=== PATIENT | male | born 1980 | race Caucasian/White ===

== ENCOUNTER 2017-03-10 20:38 | Emergency (ER) | payer BC, OTHER ==
[~2017-03-10] VITALS: Ht 185.4 cm; Wt 116.0 kg
[~2017-03-10 20:38] MED LIST: AMPH20CA3 PO; HYDR-4380 PO; OXYC-57 PO
[2017-03-10 20:40] VITALS: TEMP 36.9; Ht 185.4 cm; Wt 116.0 kg
[2017-03-10] MEDS ORDERED: IBUP-1050 PO (20:56)
[2017-03-10] MEDS ORDERED: MoRPHine SULFATE 10 MG/ML CARP/VIAL IM STA (21:35)
[2017-03-10] MEDS ORDERED: ONDANSETRON 4MG OD TAB PO ONE (21:45)
--- NOTE | 2017-03-10 22:29 | DIAGNOSTIC IMAGING REPORT ---
CT OF THE CERVICAL SPINE WITHOUT CONTRAST CLINICAL HISTORY: Severe pain from lifting at work COMPARISON STUDY: MRI of the cervical spine August 01, 2016. TECHNIQUE: Helical axial images of the cervical spine were obtained without IV contrast. Sagittal and coronal reconstructions were viewed. FINDINGS: The patient is status post C3-C4 discectomy and C5-C6 discectomy with anterior fusion. The hardware is intact. Fusion at these levels is incomplete. There is no acute fracture. Craniocervical junction is intact. Central canal and neural foramen are suboptimally assessed by CT. There is no prevertebral edema. IMPRESSION: 1. No acute cervical spine fracture or subluxation. 2. Status post C3-C4 discectomy and C5-C6 discectomy and fusion. Hardware intact. Suboptimal evaluation of central canal and neural foramen given CT technique. Electronically signed by: Leopoldo Liz M.D. 03/10/2017 10:28 PM Dictated Date/Time: 03/10/2017 10:23 PM
--- NOTE | 2017-03-10 22:35 | DIAGNOSTIC IMAGING REPORT ---
CT LUMBAR SPINE WITHOUT CLINICAL HISTORY: Severe pain from lifting at work, pain down right leg TECHNIQUE: Axial images lumbar spine were obtained without IV contrast. Sagittal and coronal reconstructions were viewed. COMPARISON STUDY: None. FINDINGS: For purposes of numbering on this exam, the L5-S1 disc space is assigned to axial image 320 of 368. There is slight anterolisthesis of L5 on S1 due to bilateral L5 pars defects. There is no acute lumbar spine fracture. Paravertebral soft tissues are unremarkable. The central canal and neural foramen are suboptimally assessed given CT technique. However, multilevel disc bulges are noted with mild multilevel facet arthrosis. There is suspected moderate central canal stenosis at L2-L3 and L3-L4. Schmorl's nodes are noted at multiple levels. IMPRESSION: 1. No acute lumbar spine fracture or subluxation. 2. Grade I anterolisthesis of L5 on S1 due to bilateral L5 pars defects. 3. Suboptimal evaluation of the central canal and neural foramen. Multilevel disc bulges with mild facet arthrosis with suspected moderate central canal stenosis at L2-L3 and to a lesser extent L3-L4. Electronically signed by: Leopoldo Liz M.D. 03/10/2017 10:34 PM Dictated Date/Time: 03/10/2017 10:28 PM
[2017-03-10] MEDS ORDERED: OXYCODONE IR HOME PACK PO ONE (23:00)
[2017-03-10] MEDS ORDERED: ONDANSETRON HOME PACK 4MG OD TAB PO ONE (23:00)
[2017-03-10] MEDS ORDERED: PRED50TA PO (23:06)
[2017-03-10 23:12] VITALS: BP 155/104; PULSE 86; O2SAT 98
[2017-03-10] MEDS ORDERED: DEXAMETHASONE SOD INJ 10 MG/ML VIAL PO ONE (23:15)
--- NOTE | 2017-03-11 03:11 | EMERGENCY ROOM VISIT NOTE ---
History First contact with patient: 21:28 Chief Complaint: NECK PAIN Stated Complaint: NECK LOW BACK PAIN History of Present Illness The patient is a 36 year old male who presents to the Emergency Room with complaints of severe neck pain and low back pain that radiates down his left leg after lifting heavy equipment at work. He states the pain started while lifting at work. He states this is work-related. He describes the pain as aching, ranging in severity 8 out of 10 worse with movement and better with rest. He's had prior neck surgery by Dr. Mejia. He states he does not like this doctor and will never see him again. He states he has a new spine doctor in [place] and He has appointment next week. Patient denies numbness, tingling , loss of bowel or bladder control, saddle anesthesia, IV drug abuse, fever, chills, chest pain, dyspnea, abdominal pain, arm pain, and arm weakness, leg weakness or any other medical complaints. Review of Systems See HPI for pertinent positives & negatives. A total of 10 systems reviewed and were otherwise negative. Past Medical/Surgical History Medical Problems: (1) ATTN DEFIC NONHYPERACT (2) Cervical spinal cord compression (3) LYME DISEASE Family History Heart disease Social History Smoking Status: Current Every Day Smoker Alcohol Use: none Drug Use: none Marital Status: Housing Status: lives with family Occupation Status: employed Current/Historical Medications Scheduled Amphetamine-Dextroamphetamine 20MG (Adderall Xr 20MG), 20 MG PO DAILY Ibuprofen (Advil), 800 MG PO DAILY Prednisone (Prednisone), 50 MG PO DAILY Allergies Coded Allergies: No Known Allergies (Unverified , NONE, 03/10/17) Physical Exam Vital Signs Date Time Temp Pulse Resp B/P (MAP) Pulse Ox O2 Delivery O2 Flow Rate FiO2 03/10/17 23:12 86 16 155/104 98 03/10/17 22:31 94 16 161/112 97 Room Air 03/10/17 20:40 36.9 115 20 193/120 98 Room Air Pain Rating (0-10): 3.0 Physical Exam VITALS: Vitals are noted on the nurse's note and reviewed by myself. Vital signs hypertensive GENERAL: Pleasant female ambulate without difficulties, in no acute distress, nondiaphoretic, well-developed well-nourished. SKIN: Capillary reflex less than 2 seconds. HEENT: Normocephalic. PERRLA. EOMI. Nares patent. Mucous membranes moist. Neck: supple without nuchal rigidity. Minimal C-spine tenderness C5 and 6. HEART: Regular rate and rhythm without murmurs gallops or rubs. LUNGS: Clear to auscultation bilaterally without wheezes, rales or rhonchi. No retractions or accessory muscle use. ABDOMEN: Positive bowel sounds x 4. Normal tympanic percussion. Soft, nontender, without masses or organomegaly. Brooks sign negative. No guarding or rebound tenderness. MUSCULOSKELETAL: No gross musculoskeletal defects. No pedal edema. No calf tenderness. No thoracic or lumbar tenderness on exam. Negative straight leg raise. 5 out of 5 strength throughout. Patient can walk on toes and heels. NEURO: Patient was alert and oriented to person place and time. Normal sensation to light and sharp touch. Deep tendon reflexes 2+ throughout. No focal neurological deficits. Medical Decision & Procedures Medications Administered Medications (Trade) Dose Ordered Sig/Len Route Start Time Stop Time Status Last Admin Dose Admin Morphine Sulfate (MoRPHine SULFATE INJ) 8 mg NOW STAT IM 03/10/17 21:35 03/10/17 21:38 DC 03/10/17 21:46 8 MG Ondansetron HCl (Zofran Odt) 4 mg ONE ONCE PO 03/10/17 21:45 03/10/17 21:46 DC 03/10/17 21:46 4 MG Oxycodone HCl (Roxicodone Immediate Rel 5MG Home Pack) 1 homepack UD ONCE PO 03/10/17 23:00 03/10/17 23:01 DC 03/10/17 23:09 1 HOMEPACK Ondansetron HCl (ZOFRAN ODT 4MG Home Pack) 1 homepack UD ONCE PO 03/10/17 23:00 03/10/17 23:01 DC 03/10/17 23:09 1 HOMEPACK Dexamethasone Sodium Phosphate (Decadron Inj) 10 mg NOW ONCE PO 03/10/17 23:15 03/10/17 23:16 DC 03/10/17 23:09 10 MG ED Course Prior records/ancillary studies reviewed. Triage Nursing notes reviewed. The patient's history was concerning for neck and back pain. Differential diagnosis: Etiologies such as musculoskeletal, disc herniation, fracture, aortic disease, metastatic disease, cord compression, discitis, infection, renal colic, gastrointestinal, acute exacerbation of chronic back pain, sciatica, cauda equina, as well as others were entertained. Physical findings: As above. No focal neurologic findings noted. ER treatment provided: Morphine, Decadron On reassessment the patient felt better. Diagnostics interpreted by me: Imaging studies: CT OF THE CERVICAL SPINE WITHOUT CONTRAST CLINICAL HISTORY: Severe pain from lifting at work COMPARISON STUDY: MRI of the cervical spine August 01, 2016. TECHNIQUE: Helical axial images of the cervical spine were obtained without IV contrast. Sagittal and coronal reconstructions were viewed. FINDINGS: The patient is status post C3-C4 discectomy and C5-C6 discectomy with anterior fusion. The hardware is intact. Fusion at these levels is incomplete. There is no acute fracture. Craniocervical junction is intact. Central canal and neural foramen are suboptimally assessed by CT. There is no prevertebral edema. IMPRESSION: 1. No acute cervical spine fracture or subluxation. 2. Status post C3-C4 discectomy and C5-C6 discectomy and fusion. Hardware intact. Suboptimal evaluation of central canal and neural foramen given CT technique. CT LUMBAR SPINE WITHOUT CLINICAL HISTORY: Severe pain from lifting at work, pain down right leg TECHNIQUE: Axial images lumbar spine were obtained without IV contrast. Sagittal and coronal reconstructions were viewed. COMPARISON STUDY: None. FINDINGS: For purposes of numbering on this exam, the L5-S1 disc space is assigned to axial image 320 of 368. There is slight anterolisthesis of L5 on S1 due to bilateral L5 pars defects. There is no acute lumbar spine fracture. Paravertebral soft tissues are unremarkable. The central canal and neural foramen are suboptimally assessed given CT technique. However, multilevel disc bulges are noted with mild multilevel facet arthrosis. There is suspected moderate central canal stenosis at L2-L3 and L3-L4. Schmorl's nodes are noted at multiple levels. IMPRESSION: 1. No acute lumbar spine fracture or subluxation. 2. Grade I anterolisthesis of L5 on S1 due to bilateral L5 pars defects. 3. Suboptimal evaluation of the central canal and neural foramen. Multilevel disc bulges with mild facet arthrosis with suspected moderate central canal stenosis at L2-L3 and to a lesser extent L3-L4. Electronically signed by: Leopoldo Liz M.D. This appears to be consistent with lumbar radiculopathy and cervical strain. Patient was neurovascular and neurologically intact. No deficits on exam. He was advised to follow-up as scheduled with his back doctor or here in the ER sooner for severe pain, numbness, tingling, inability to walk, worsening signs or symptoms or as needed. He was counseled on his high blood pressure. He is advised to see family medicine for this. Patient ambulated out of the ER without difficulties. The patient's physical examination and detailed history did not reveal any red flags for back pain such as those listed in the differential diagnosis. Therefore advanced diagnostics and consultations were felt to be unwarranted. By the evaluation outlined above emergent etiologies such as fracture, aortic disease, metastatic disease, infection, renal colic, gastrointestinal, cord compression, cauda equina, as well as others were deemed relatively unlikely. The pt informed about the findings as listed above. All questions were answered and pleased with the treatment. Return instructions were outlined and the patient was discharged in stable condition. Outpatient prescription management: Oxy IR 5mg 1-2 po Q4 hrs prn Referral: The patient was referred back to orthopedic spine and primary care physician for follow-up in 2 to 3 days for a recheck of the current condition. Medical Decision As above Patient was found to have elevated blood pressure and was referred to their family doctor for recheck and further treatment. [place] Drug Monitoring Program Search Results: patient reviewed within database, see additional documentation (multiple high narcotic dose scripts.) Impression Primary Impression: Lumbar radiculopathy, acute Additional Impression: Cervical strain, acute Departure Information Dispostion Home / Self-Care Condition GOOD Prescriptions Prednisone (Prednisone) 50 Mg Tab 50 MG PO DAILY for 4 Days, #4 TAB Prov: Dena Phillips .ARVIND 03/10/17 Forms WORK / SCHOOL INSTRUCTIONS, HOME CARE DOCUMENTATION FORM, Days off work : 2 Work Instructions, IMPORTANT VISIT INFORMATION Patient Instructions Lumbar Radiculopathy, My [facility] Additional Instructions DO NOT drive, drink alcohol, operate machinery, or perform dangerous activities today. You were given medications in the ER that can affect your ability to safely function or operate a vehicle. Prednisone 50mg: Once daily until the prescription is finished. It is best to take this earlier in the day as some patients note occasional difficulty falling asleep when taken in the late evening. Oxycodone (OxyIR) 5mg: Take 1-2 pills every four hours for breakthrough pain. Avoid alcohol, operating machinery or dangerous equipment, working on ladders or roofs, DRIVING, or situations where being under the influence may be dangerous. It is recommended to use an [id number] stool softener such as Colace, 100mg twice daily while taking this medication to avoid constipation. Ibuprofen(Motrin, Advil) may be used for fever or pain. Use 600mg every six hours as needed. Take with food. Avoid using more than 2400mg in a 24 hour period. Do not use 2400mg per day for more than three consecutive days without physician direction. Prolonged inappropriate use can lead to stomach upset or ulcers. This medication can be taken if you need to drive, work, or perform activities which may be dangerous when taking narcotic pain medication. (AND/OR) Acetaminophen(Tylenol) may be used for fever or pain. Use 1000mg every six hours as needed. Avoid using more than 3000mg in a 24 hour period. This medication can be taken if you need to drive, work, or perform activities which may be dangerous when taking narcotic pain medication. Rest and avoid heavy lifting until your symptoms resolve and then gradually return to full activity. A good rule of thumb is if it hurts your back to perform a certain activity, then it should be avoided until you are healthy again. A heating pad, warm compresses, or a hot shower may help with tight muscles and can be done several times a day as needed. Continue current medications. Return to the ER immediately for any numbness, tingling, severe pain, loss of control of your bowels or bladder, inability to walk, or as needed. Follow up with your primary care physician/ortho spine within 3-5 days for a recheck of your current condition. Problem Qualifiers
== END 2017-03-10 23:10 | disposition home or self-care (01) ==
LOC: C.EDB 20:39 → C.EDC 23:10
DX: M54.16 Radiculopathy, lumbar region (principal); S16.1XXA Strain of muscle, fascia and tendon at neck level, initial encounter; F98.8 Other specified behavioral and emotional disorders with onset usually occurring in childhood and adolescence; Z79.899 Other long term (current) drug therapy; Z82.49 Family history of ischemic heart disease and other diseases of the circulatory system; F17.200 Nicotine dependence, unspecified, uncomplicated; X50.9XXA Other and unspecified overexertion or strenuous movements or postures, initial encounter; Y99.0 Civilian activity done for income or pay

== ENCOUNTER 2017-03-12 14:05 | Emergency (ER) | payer BC, OTHER ==
[~2017-03-12] VITALS: Ht 185.4 cm; Wt 117.2 kg
[~2017-03-12 14:05] MED LIST changes: -HYDR-4380 PO; +IBUP-1050 PO; -OXYC-57 PO; +PRED50TA PO
[2017-03-12 14:16] VITALS: TEMP 37.1; Ht 185.4 cm; Wt 117.2 kg
[2017-03-12] MEDS ORDERED: MoRPHine SULFATE 10 MG/ML CARP/VIAL IV STA ×2 (14:40→17:40)
[2017-03-12] MEDS ORDERED: ONDANSETRON INJ 2 MG/ML 2 ML VIAL IV STA (14:40)
[2017-03-12] MEDS ORDERED: SODIUM CHLORIDE 0.9% 1000ML 1,000 ML IV STA (14:42)
[2017-03-12 15:09] LABS: BASO % 0.5 %; BASO ABS # 0.07 K/uL (0-0.2); COMPLETE YES; EOS % 1.2 %; HEMATOCRIT 45.1 % (42-52); IG% 0.5 %; LYMPH % 35.1 %; LYMPH ABS # 4.63 K/uL (1.2-3.4); MEAN CELL VOLUME 88.6 fL (80-100); MEAN CORPUSCULAR HEMOGLOBIN 30.1 pg (25-34); MEAN CORPUSCULAR HGB CONC 33.9 g/dl (32-36); MEAN PLATELET VOLUME 10.5 fL (7.4-10.4); MONO % 7.7 %; PLATELET COUNT 280 K/uL (130-400); RED BLOOD COUNT 5.09 M/uL (4.7-6.1)
[2017-03-12 15:27] LABS: ALT/SGPT 33 U/L (12-78); AST/SGOT 18 U/L (15-37); BLOOD UREA NITROGEN 14 mg/dl (7-18); BUN/CREATININE RATIO 12.4 (10-20); CALCIUM 9.1 mg/dl (8.5-10.1); CARBON DIOXIDE 28 mmol/L (21-32); CHLORIDE 107 mmol/L (98-107); GLUCOSE 90 mg/dl (70-99); SODIUM 142 mmol/L (136-145)
[2017-03-12 15:30] LABS: ALKALINE PHOSPHATASE 91 U/L (45-117)
[2017-03-12 17:28] VITALS: BP 171/101; PULSE 85; O2SAT 97
--- NOTE | 2017-03-12 17:31 | DIAGNOSTIC IMAGING REPORT ---
MRI OF THE LUMBAR SPINE WITHOUT CONTRAST CLINICAL HISTORY: Severe lower back pain radiating into both lower extremities. COMPARISON STUDY: Lumbar spine CT March 10, 2017. TECHNIQUE: Utilizing a 1.5 Sparkle magnet and dedicated coil, multiplanar, multiecho imaging of the lumbar spine was performed without IV contrast. FINDINGS: For purposes of numbering on this exam, the L5-S1 disc space is assigned to axial image 23 of 25. There is minimal anterolisthesis of L5 on S1 due to bilateral L5 pars defects. Vertebral body heights are maintained. A 1 cm T1 and T2 hyperintense L5 vertebral body lesion reflects a hemangioma. There is no intracanalicular mass or fluid collection. Conus terminates at the T12-L1 level. Paravertebral soft tissues are unremarkable. Schmorl's nodes are noted at multiple levels. T12-L1: There is disc space narrowing with disc bulge and osteophyte formation that results in mild narrowing of the central canal. L1-2: There is mild disc bulge. There is mild facet arthrosis. Central canal and neural foramen are patent. L2-3: There is disc bulge with ligamentous hypertrophy and facet arthrosis. There is moderate narrowing of the central canal and lateral recesses with no significant neural foraminal stenosis. L3-4: There is disc bulge with ligamentous hypertrophy. There is mild narrowing of the central canal and lateral recesses. L4-5: There is mild disc bulge. There is ligamentous hypertrophy. There is mild narrowing of the central canal, lateral recesses and neural foramen. L5-S1: The central canal and neural foramen are patent. IMPRESSION: 1. Multilevel disc bulges with osteophyte formation, most pronounced at L2-L3 where there is moderate central canal stenosis. Additional mild multilevel central canal stenosis, as detailed above. 2. No large disc herniation. 3. Grade I anterolisthesis of L5 on S1 due to bilateral L5 pars defects. Electronically signed by: Leopoldo Liz M.D. 03/12/2017 5:30 PM Dictated Date/Time: 03/12/2017 5:21 PM
[2017-03-12] MEDS ORDERED: PRED50TA PO (17:42)
[2017-03-12] MEDS ORDERED: DEXAMETHASONE SOD INJ 10 MG/ML VIAL IV ONE (17:45)
--- NOTE | 2017-03-12 18:58 | EMERGENCY ROOM VISIT NOTE ---
History Report prepared by Scribsusan: Jayjay Lee Under the Supervision of: Dr. Wilberto Vickers D.O. First contact with patient: 14:23 Chief Complaint: NECK PAIN Stated Complaint: SEVERE NECK/BACK PAIN History of Present Illness The patient is a 36 year old male who presents to the Emergency Room with complaints of persistent neck pain beginning two days ago. He had a Had C5-C6 spinal fusion and C3-C4 arthroplasty 7 months ago (August 2016). He states that his pain radiates down his spine and into both legs. The patient's pain is worse in the left leg. He also complains of tingling in his thighs, but denies any weakness. His pain is worsened with bending over. The patient states that his pain began after he "jolted" his neck recently 2 days ago. He was seen in the ED for the "same pain" two days ago. He states that he has been having some back pain with defecation. The patient states that he was previously seen at the pain clinic, but has not received any pain treatment in over a month and a half. Pt denies headache, change in vision, fevers, chest pain, shortness of breath, nausea, vomiting, diarrhea, pain with urination, and melena. No pain or numbness in his groin. He is able to urinate without difficulty. No weakness in his legs. Source of History: patient Onset: Two days ago Position: neck Timing: other (persistent) Associated Symptoms: + back pain, No fevers, No headache, No chest pain, No SOB, No nausea, No vomiting, No diarrhea, No urinary symptoms, No weakness Note: The patient also complains of pain and tingling in his legs. Review of Systems See HPI for pertinent positives & negatives. A total of 10 systems reviewed and were otherwise negative. Past Medical & Surgical Medical Problems: (1) ATTN DEFIC NONHYPERACT (2) Cervical spinal cord compression (3) LYME DISEASE Family History Heart disease Social History Smoking Status: Current Every Day Smoker Alcohol Use: none Drug Use: none Marital Status: Housing Status: lives with family Occupation Status: employed Current/Historical Medications Scheduled Amphetamine-Dextroamphetamine 20MG (Adderall Xr 20MG), 20 MG PO DAILY Prednisone (Prednisone), 50 MG PO DAILY Allergies Coded Allergies: No Known Allergies (Unverified , NONE, 03/10/17) Physical Exam Vital Signs Date Time Temp Pulse Resp B/P (MAP) Pulse Ox O2 Delivery O2 Flow Rate FiO2 03/12/17 17:28 85 20 171/101 97 Room Air 03/12/17 16:12 86 20 167/101 98 Room Air 03/12/17 14:16 37.1 109 20 179/109 97 Room Air Physical Exam GENERAL: alert, laying face down on bed, moderate distress, holding lower lumbar region. EYE EXAM: normal conjunctiva. OROPHARYNX: no exudate, no erythema, lips, buccal mucosa, and tongue normal and mucous membranes are moist NECK: supple, no nuchal rigidity, no adenopathy. LUNGS: Clear to auscultation. Normal chest wall mechanics HEART: no murmurs, S1 normal and S2 normal ABDOMEN: abdomen soft, non-tender, normo-active bowel sounds, no masses, no rebound or guarding. BACK: Acute tenderness in the upper cervical region and lower lumbar region midline paraspinal and tracking through the gluteus muscles. SKIN: no rashes and no bruising UPPER EXTREMITIES: Flection/extension of the shoulder, elbow, wrist and grasp 5/ 5 bilaterally. Biceps reflex 1/4 bilaterally. Abduction of digits intact. LOWER EXTREMITIES: No pitting edema. Extension/flexion hip, knee, ankle, and EHL 5/5 bilaterally. Able to walk on heels and toes. Gross sensation intact. Patellar/Achilles reflexes 2/4 bilaterally. NEURO EXAM: Normal sensorium, cranial nerves II-XII grossly intact, normal speech, no gross weakness of arms, no weakness of legs. Medical Decision & Procedures ER Provider Diagnostic Interpretation: MRI: Per my review, radiologist interpretation. MRI OF THE LUMBAR SPINE WITHOUT CONTRAST FINDINGS: For purposes of numbering on this exam, the L5-S1 disc space is assigned to axial image 23 of 25. There is minimal anterolisthesis of L5 on S1 due to bilateral L5 pars defects. Vertebral body heights are maintained. A 1 cm T1 and T2 hyperintense L5 vertebral body lesion reflects a hemangioma. There is no intracanalicular mass or fluid collection. Conus terminates at the T12-L1 level. Paravertebral soft tissues are unremarkable. Schmorl's nodes are noted at multiple levels. T12-L1: There is disc space narrowing with disc bulge and osteophyte formation that results in mild narrowing of the central canal. L1-2: There is mild disc bulge. There is mild facet arthrosis. Central canal and neural foramen are patent. L2-3: There is disc bulge with ligamentous hypertrophy and facet arthrosis. There is moderate narrowing of the central canal and lateral recesses with no significant neural foraminal stenosis. L3-4: There is disc bulge with ligamentous hypertrophy. There is mild narrowing of the central canal and lateral recesses. L4-5: There is mild disc bulge. There is ligamentous hypertrophy. There is mild narrowing of the central canal, lateral recesses and neural foramen. L5-S1: The central canal and neural foramen are patent. IMPRESSION: 1. Multilevel disc bulges with osteophyte formation, most pronounced at L2-L3 where there is moderate central canal stenosis. Additional mild multilevel central canal stenosis, as detailed above. 2. No large disc herniation. 3. Grade I anterolisthesis of L5 on S1 due to bilateral L5 pars defects. Electronically signed by: Leopoldo Liz M.D. Laboratory Results 03/12/17 14:57 Red Blood Count 5.09, Mean Corpuscular Volume 88.6, Mean Corpuscular Hemoglobin 30.1, Mean Corpuscular Hemoglobin Concent 33.9, Mean Platelet Volume 10.5, Neutrophils (%) (Auto) 55.0, Lymphocytes (%) (Auto) 35.1, Monocytes (%) (Auto) 7.7, Eosinophils (%) (Auto) 1.2, Basophils (%) (Auto) 0.5, Neutrophils # (Auto) 7.27, Lymphocytes # (Auto) 4.63, Monocytes # (Auto) 1.01, Eosinophils # (Auto) 0.16, Basophils # (Auto) 0.07 03/12/17 14:57 Test 03/12/17 14:57 White Blood Count 13.20 K/uL (4.8-10.8) Red Blood Count 5.09 M/uL (4.7-6.1) Hemoglobin 15.3 g/dL (14.0-18.0) Hematocrit 45.1 % (42-52) Mean Corpuscular Volume 88.6 fL (80-100) Mean Corpuscular Hemoglobin 30.1 pg (25-34) Mean Corpuscular Hemoglobin Concent 33.9 g/dl (32-36) Platelet Count 280 K/uL (130-400) Mean Platelet Volume 10.5 fL (7.4-10.4) Neutrophils (%) (Auto) 55.0 % Lymphocytes (%) (Auto) 35.1 % Monocytes (%) (Auto) 7.7 % Eosinophils (%) (Auto) 1.2 % Basophils (%) (Auto) 0.5 % Neutrophils # (Auto) 7.27 K/uL (1.4-6.5) Lymphocytes # (Auto) 4.63 K/uL (1.2-3.4) Monocytes # (Auto) 1.01 K/uL (0.11-0.59) Eosinophils # (Auto) 0.16 K/uL (0-0.5) Basophils # (Auto) 0.07 K/uL (0-0.2) RDW Standard Deviation 45.8 fL (36.4-46.3) RDW Coefficient of Variation 14.0 % (11.5-14.5) Immature Granulocyte % (Auto) 0.5 % Immature Granulocyte # (Auto) 0.06 K/uL (0.00-0.02) Anion Gap 7.0 mmol/L (3-11) Est Creatinine Clear Calc Drug Dose 125.7 ml/min Estimated GFR () 100.3 Estimated GFR (Non- 86.5 BUN/Creatinine Ratio 12.4 (10-20) Calcium Level 9.1 mg/dl (8.5-10.1) Total Bilirubin 0.5 mg/dl (0.2-1) Direct Bilirubin < 0.1 mg/dl (0-0.2) Aspartate Amino Transf (AST/SGOT) 18 U/L (15-37) Alanine Aminotransferase (ALT/SGPT) 33 U/L (12-78) Alkaline Phosphatase 91 U/L (45-117) Total Protein 7.3 gm/dl (6.4-8.2) Albumin 4.2 gm/dl (3.4-5.0) Laboratory results per my review. Medications Administered Medications (Trade) Dose Ordered Sig/Len Route Start Time Stop Time Status Last Admin Dose Admin Morphine Sulfate (MoRPHine SULFATE INJ) 6 mg NOW STAT IV 03/12/17 14:40 03/12/17 14:42 DC 03/12/17 14:58 6 MG Ondansetron HCl (Zofran Inj) 4 mg NOW STAT IV 03/12/17 14:40 03/12/17 14:42 DC 03/12/17 14:57 4 MG Sodium Chloride 1,000 ml @ 999 mls/hr Q1H1M STAT IV 03/12/17 14:42 03/12/17 15:42 DC 03/12/17 14:58 999 MLS/HR Dexamethasone Sodium Phosphate (Decadron Inj) 10 mg NOW ONCE IV 03/12/17 17:45 03/12/17 17:46 DC 03/12/17 17:52 10 MG Morphine Sulfate (MoRPHine SULFATE INJ) 6 mg NOW STAT IV 03/12/17 17:40 03/12/17 17:41 DC 03/12/17 17:51 6 MG ED Course ED COURSE: Vital signs were reviewed and showed hypertension and tachycardia. The patients medical record was reviewed The above diagnostic studies were performed and reviewed. ED treatments and interventions as stated above. 1428: The patient was evaluated in room C3. A complete history and physical examination was performed. 1440: Ordered Zofran Inj 4 mg IV, Morphine Sulfate Inj 6 mg IV. 1442: Ordered Sodium Chloride 1000 ml @ 999 mls/hr IV. 1727: Post-void US revealed 30 mL of urine. 1730: Upon reevaluation, the patient is resting comfortably. I discussed my findings with the patient and he understands and agrees with the treatment plan. Based on the patients age, coexisting illnesses, exam and lab findings the decision to treat as an outpatient was made. The patient remained stable while under my care. The patient appeared well at the time of discharge. 1740: Ordered Morphine Sulfate 6 mg IV, Decadron Inj 10 mg IV. Medical Decision Differential diagnoses includes but is not limited to lumbar radiculopathy, muscle strain, facture, cauda equina, mass, and disc herniation. Patient is a 36-year-old male who presents the ER for lower back pain tracking down bilateral legs. Patient does complain of tingling down the back of his legs to bilateral knees. Worsens left. He is completely neurologically intact on exam. Previous neck surgery. He does complain of severe pain in lower lumbar with these paresthesias and I do believe its likely lumbar origin. With the recent CTs of his neck and lumbar spine I elected to perform an MRI of the lumbar spine. MRI shows DJD with a discs and central canal stenosis. CBC shows a white count 13,000 likely secondary to pain. BMP was unremarkable. No IV drug use and no fevers to suggest abscess elsewhere. Pt was given 2 doses of IV pain medications. Patient fell significant better was discharged follow- up with his PCP and spine surgeon this Tuesday as he is able to walk on his heels and toes and there is no cauda equina. Discussed with Pt concerning signs and symptoms to watch out for. Pt was instructed to follow up with their PCP and discussed with the patient their option to return to the ED at anytime for persistent or worsening symptoms. The appropriate anticipatory guidance and out- patient management, including indications for return to the emergency department , were explained at length to the patient and understood. [place] Drug Monitoring Program Search Results: patient reviewed within database, see additional documentation Drug Monitoring Findings: Multiple prescriptions by multiple providers. Impression Primary Impression: Back pain Scribe Attestation The scribe's documentation has been prepared under my direction and personally reviewed by me in its entirety. I confirm that the note above accurately reflects all work, treatment, procedures, and medical decision making performed by me. Departure Information Dispostion Home / Self-Care Prescriptions Prednisone (PREDNISONE) 50 Mg Tab 50 MG PO DAILY for 2 Days, #2 TAB Prov: Wilberto Vickers, DO 03/12/17 Referrals No Doctor, Assigned (PCP) Forms HOME CARE DOCUMENTATION FORM, IMPORTANT VISIT INFORMATION, WORK / SCHOOL INSTRUCTIONS Patient Instructions Back Pain - [facility], [facility] Additional Instructions Please follow up with your primary care doctor with in the next 24 hours. Any worsening of your symptoms, please return to the ED immediately. This includes fevers greater than 100.4, numbness in your groin, unable to urinate, unable to move her bowels, unable to walk, weakness or numbness in your legs, or any other concerning signs or symptoms from your standpoint. Please continue steroids as previously prescribed. Problem Qualifiers Primary Impression: Back pain Back pain location: low back pain Chronicity: acute Back pain laterality: unspecified Sciatica presence: unspecified whether sciatica present Qualified Codes: M54.5 - Low back pain
== END 2017-03-12 18:06 | disposition home or self-care (01) ==
LOC: C.EDB 14:07 → C.EDC 18:06
DX: M54.5 Low back pain (principal); Z98.1 Arthrodesis status; Z98.890 Other specified postprocedural states; F90.9 Attention-deficit hyperactivity disorder, unspecified type; F17.210 Nicotine dependence, cigarettes, uncomplicated; Z79.899 Other long term (current) drug therapy

== ENCOUNTER 2017-04-11 10:47 | Emergency (ER) | payer BC, OTHER ==
[~2017-04-11] VITALS: Ht 182.9 cm; Wt 121.0 kg
[~2017-04-11 10:47] MED LIST changes: -IBUP-1050 PO; -PRED50TA PO
[2017-04-11 10:56] VITALS: TEMP 37.1; Ht 182.9 cm; Wt 121.0 kg
[2017-04-11] MEDS ORDERED: LISI-461 PO (11:19)
--- NOTE | 2017-04-11 11:31 | DIAGNOSTIC IMAGING REPORT ---
RIGHT HAND MIN 3 VIEWS ROUTINE CLINICAL HISTORY: 36 years-old Male presenting with right hand injury, smashed hand at work along the lateral aspect, prior hand surgery. TECHNIQUE: Frontal, oblique, and lateral views of the right hand were obtained. COMPARISON: 10/29/2013. FINDINGS: Tiny osseous fragments at the base of the fourth metacarpal along the radial aspect is new from prior. 2 screw fixation across the hamate again noted. Tiny osseous fragment adjacent to the ulnar styloid process, possibly old fracture of the ulnar styloid. Radiocarpal and intercarpal articulations intact. No malalignment. IMPRESSION: Tiny osseous fragment at the base of the fourth metacarpal is of uncertain etiology. Acute fracture cannot be excluded, although this may be degenerative in etiology. Correlate with point tenderness. Electronically signed by: Bryan Saldivar M.D. 04/11/2017 11:30 AM Dictated Date/Time: 04/11/2017 11:27 AM
[2017-04-11] MEDS ORDERED: HYDR-4383 PO (11:52)
[2017-04-11 12:17] VITALS: BP 177/123; PULSE 94; O2SAT 97
--- NOTE | 2017-04-11 16:20 | EMERGENCY ROOM VISIT NOTE ---
History First contact with patient: 11:07 Chief Complaint: HAND PAIN/INJURY Stated Complaint: SMASHED RIGHT HAND-WORK RELATED INJURY History of Present Illness The patient is a 36 year old male who presents to the Emergency Room with complaints of right hand pain after injuring his hand at work. The patient reports that he was tightening lungs with a breaker bar when it broke and he punched adjacent metal. The patient reports pain and deformity of his right hand. He also reports pain with movement of the fourth and fifth fingers. The patient reports prior history of ORIF surgery in [place] at [facility]. He currently denies any pain extending into the wrist or forearm, denies numbness of the hand or fingers, and rates his pain an 8 out of 10. The patient is right -hand-dominant. Review of Systems 10 system review was performed and was negative except for pertinent positives and negatives as indicated in history of present illness Past Medical/Surgical History Medical Problems: (1) ATTN DEFIC NONHYPERACT (2) Cervical spinal cord compression (3) LYME DISEASE Family History Heart disease Social History Smoking Status: Current Every Day Smoker Alcohol Use: none Drug Use: none Marital Status: Housing Status: lives with family Occupation Status: employed Current/Historical Medications Scheduled Lisinopril (Lisinopril), 10 MG PO DAILY Scheduled PRN Hydrocodone/Acetaminophen (Morven 10/325 Tab), 1 TAB PO q4-6h PRN for Pain Physical Exam Vital Signs Date Time Temp Pulse Resp B/P (MAP) Pulse Ox O2 Delivery O2 Flow Rate FiO2 04/11/17 12:17 94 18 177/123 97 04/11/17 10:56 37.1 19 20 155/100 98 Room Air Physical Exam CONSTITUTIONAL: Healthy and well nourished. Alert and oriented X 3 with positive affect. Patient is not appear in any acute distress. HEENT: Normocephalic, atraumatic. Pupils equal, round and reactive. NECK: Full active range of motion without discomfort. MUSCULOSKELETAL: Examination of the right hand shows notable edema over the fourth and fifth distal metacarpal region. No open wounds noted. The patient has no tenderness to palpation through the first through third phalanges or wrist. Capillary refill is less than 2 seconds. INTEGUMENTARY: No rash or other significant dermatologic conditions noted. NEUROLOGIC: Right hand and fingers are sensory intact. Medical Decision & Procedures ER Provider Diagnostic Interpretation: My interpretation of right hand x-rays shows a possible fragment at the dorsal base of the fourth metacarpal. Screw fixation is noted from prior surgery. No other dislocations noted. Radiologist report is as follows: RIGHT HAND MIN 3 VIEWS ROUTINE CLINICAL HISTORY: 36 years-old Male presenting with right hand injury, smashed hand at work along the lateral aspect, prior hand surgery. TECHNIQUE: Frontal, oblique, and lateral views of the right hand were obtained. COMPARISON: 10/29/2013. FINDINGS: Tiny osseous fragments at the base of the fourth metacarpal along the radial aspect is new from prior. 2 screw fixation across the hamate again noted. Tiny osseous fragment adjacent to the ulnar styloid process, possibly old fracture of the ulnar styloid. Radiocarpal and intercarpal articulations intact. No malalignment. IMPRESSION: Tiny osseous fragment at the base of the fourth metacarpal is of uncertain etiology. Acute fracture cannot be excluded, although this may be degenerative in etiology. Correlate with point tenderness. ED Course Patient history and physical exam were performed. Nurse's notes were reviewed. Vital signs were reviewed, showing a blood pressure of 155/100. Review of x- rays shows a possible fracture at the base of the fourth metacarpal, immediately adjacent to the patient's surgical hardware. At this point, I did suggest that the patient follow-up with his surgeon at [facility] in [place]. He reports that the surgeon is no longer around. I did explain that orthopedics locally probably will not manage his case. 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 The patient did request a prescription for something for pain. Review of the [place] Prescription Drug Monitoring Program shows that the patient was recently in a pain clinic in [place]. His last prescription fill was in January. When asked if he was in any additional pain management program , he denies, and reports that he left the pain clinic because he was having neck pain from a failed surgery, and chronic lower back pain. The patient was advised that the emergency department does not provide prescription narcotics with recent history of pain clinic management. However, because he does have an acute fracture, he will be provided a short prescription for Morven 5/325, dispensed #15 with no refills. He must receive any additional prescriptions from his family doctor or orthopedics. The patient voiced understanding of all discharge instructions, was happy with plan of care, refused any analgesics while in the emergency department, and rated his pain a 6 out of 10 at the time of discharge. The patient was encouraged to follow-up with his PCP for blood pressure recheck as his pressure was elevated in the emergency department. Medical Decision [place] Drug Monitoring [place] Search Results: patient reviewed within database, see additional documentation Medication Reconcilliation Current Medication List: was personally reviewed by me Blood Pressure Screening Patient's blood pressure: Elevated blood pressure Blood pressure disposition: Referred to PCP Impression Primary Impression: Other fracture of fourth metacarpal bone, right hand, initial encounter for closed fracture Departure Information Prescriptions Hydrocodone/Acetaminophen (Morven 10/325 Tab) 1 Tab Tab 1 TAB PO q4-6h Y for Pain, #15 TAB For Initial Treatment Prov: Andriy Espino PA 04/11/17 Referrals No Doctor, Assigned (PCP) Patient Instructions [facility]
== END 2017-04-11 12:19 | disposition home or self-care (01) ==
LOC: C.EDB 10:49 → C.EDD 12:19
DX: S62.304A Unspecified fracture of fourth metacarpal bone, right hand, initial encounter for closed fracture (principal); W31.1XXA Contact with metalworking machines, initial encounter; Y99.0 Civilian activity done for income or pay; F90.0 Attention-deficit hyperactivity disorder, predominantly inattentive type; Z82.49 Family history of ischemic heart disease and other diseases of the circulatory system; F17.200 Nicotine dependence, unspecified, uncomplicated

== ENCOUNTER 2017-10-18 12:42 | Emergency (ER) | payer BC, OTHER ==
[~2017-10-18 12:42] MED LIST changes: -AMPH20CA3 PO; +LISI-461 PO
== END 2017-10-18 13:22 | disposition left against medical advice (07) ==
LOC: C.EDB 12:43
DX: Z53.21 Procedure and treatment not carried out due to patient leaving prior to being seen by health care provider (principal)

== ENCOUNTER 2021-03-16 11:59 | Inpatient (IN) ==
--- NOTE | 2021-03-16 15:01 | History & Physical Report ---
Date of Service March 16, 2021 Assessment & Plan (1) Lumbosacral spondylosis with radiculopathy: 40 yo M with hx multiple bony injuries admitted for pain control and management of worsening spondylitic lumbosacral lesions and biomechanical muscle pain. 1. Lumbosacral Spondylosis with radiculopathy causing neuropathic pain - appreciate pain management recommendations for acute and chronic titration of pain control going forward - appreciate recommendations from orthopedic spine surgery regarding surgical indications/options for conservative measurements - gabapentin 300 BID, 600 HS - outpatient steroid taper converted to 20 mg IV methylpred daily - morphine 2 mg Q2H for moderate pain, 4mg Q2H for severe pain - tylenol 500 mg Q4H davi 2. Biomechanical pelvic girdle pain - likely due to chronically over-contracted muscles in glutes/low back/adductors to stabilize pelvis - voltaren gel scheduled QID, heating pad - toradol 15 mg Q6 IV. avoid additional NSAIDs given hx gastric ulcer while on steroids as well - diazepam 5 mg PO TID PRN for muscle tightness/pain Tobacco Use - 0.5 -1 ppd, open to quitting - 14 mg nicotine patch Hx gastric ulcer - famotidine HTN - cont olmesartan 20 mg HS Anxiety - cont lexapro AM HLD - cont statin 10 mg Misc PRNs - melatonin for sleep - zofran for nausea DVT ppx: lovenox FEN/GI: heart healthy, low salt diet, famotidine Bowel regimen: Miralax davi,+ prn MagOx prn Code Status: Full Code Dispo: Med/Surg (2) Lower back pain: (3) Lumbar disc herniation: (4) Uncontrolled hypertension: (5) Hx of gastric ulcer: Admission and Anticipated Discharge Date Admission Date: March 16, 2021 History of Present Illness 40 yo M known to me who has been experiencing worsening low back/bilateral hip pain since December 2020. Initial injury : was returning from [place], jumped off log on the ground and landed in snow where right foot sharply slammed into the ground and then gave way underneath him leading him to fall. Pain originated in his right quad, but without control, spread to left and hip girdles as he compensated for the right quad pain with other movements. Currently describes pain as being sharp, burning, "ramming" through his whole lower half and up through his whole body when worsened. 8/10 at rest sitting at the side of the bed due to pressure on the posterior half of his thighs. Denies being able to lay on stomach due to pain from extending legs. When rotating position in bed, has to push thighs together and force them to the side in order to move because active adduction/abduction causes excruciating pain. Says the pain frequently radiates into his groin/mid thigh region and feels like when he tore his meniscus in his knee. Denies any loss of bowel/bladder. No saddle anesthesia. Failed outpatient regimen: flexeril 20 mg HS, gabapentin 300 mg HS + 200 BID, 3200mg Ibuprofen, 4500 mg Tylenol, tramadol 50 mg Q6H, Prednisone 60 mg taper x 2. Evaluated in [facility] clinic on 03/09, at which point taken off NSAIDs and Tylenol and initiated on gabapentin. Primary Care Provider: NO PCP Allergies Allergy/AdvReac Type Severity Reaction Status Date / Time hydrocodone [From Vicodin] Allergy Mild Rash Verified 02/18/21 00:47 NSAIDS (Non-Steroidal AdvReac Severe PERITONEAL Verified 02/18/21 00:47 Anti-Inflamma PERFORATION ISSUES lisinopril AdvReac Intermediate Cough Verified 02/18/21 00:47 Home Medications Medication Instructions Recorded Confirmed Type olmesartan [Benicar] 20 mg PO HS 11/04/20 02/18/21 History tramadol 100 mg PO HS 11/04/20 02/18/21 History tramadol 50 mg PO Q6H PRN 12/06/20 02/18/21 History atorvastatin 10 mg PO HS 01/11/21 02/18/21 History escitalopram oxalate [Lexapro] 20 mg PO HS 01/11/21 02/18/21 History fluticasone propionate [Flonase] 2 spray INTRANASAL HS 01/11/21 02/18/21 History prednisone 20 mg PO DAILY #18 tab 02/18/21 Rx Past Med/Surg History Medical History Acromioclavicular separation, type 1 Bicipital tendonitis of right shoulder Cervical spinal cord compression Lumbar radiculopathy, acute Uncontrolled hypertension Vertigo Surgical History History of fusion of cervical spine History of hand surgery Family History Other No pertinent family history Social History (Updated 03/16/21 @ 17:44 by Liv Phelan MD) Smoking Status: Current every day smoker Tobacco Type: Cigarettes Cigarettes Per Day: 10-20; Second Hand Exposure: No; Do You Dip or Chew Tobacco: No; Tobacco Cessation Education Requested by Patient: No Hx Alcohol Use: No Hx Substance Use: No Preferred Language: Maori Communication Ability: Effective [employer] Union Teller Required: No Beliefs That Will Affect Care: None marital status details: Current Living Situation: Spouse and Family current occupational status: employed Other Information That Helps Us Care for You: No Feels Safe at Home: Yes Safety Concerns: Feels Safe At This Time Assistive Devices: None Review of Systems Review of Systems: All systems reviewed & are unremarkable except as noted in Subjective Gastrointestinal: no abdominal pain, no nausea and no fecal incontinence Genitourinary: no urinary incontinence and no genital pain Musculoskeletal: + back pain, + radicular pain, + joint pain, + stiffness and + limited range of motion; no swelling, no myalgia, no muscle weakness and no body aches Physical Exam Physical Exam: Constitutional: sitting at side of bed in evident pain but able to converse Eyes: EOMI, pupils equal and reactive bilaterally, no scleral icterus Cardiac: RRR, no murmurs, gallops or rubs. Normal S1, S2 Pulm: CTA BL, no wheezes, rhonchi, crackles or rubs, moving air well throughout both lungs Abd: soft, nontender, nondistended, normal bowel sounds, no rebound or guarding Extremities: 2+ peripheral pulses, no edema Back: TTP from L3 down on spine, TTP at BL paraspinals in same region, TTP R ASIS MSK: strength 5/5 at toes, ankles, knees, hips BL. Neuro: patellar reflexes intact. numbness in area of L2/L3 on right thigh Results & Data Results & Data ([facility]) Vital Signs (Past 12 Hours) Vital Signs Temp Pulse Resp BP Pulse Ox 03/16/21 12:43 37.0 C 117 H 20 210/129 H 98 Laboratory Results WBC 15.20 K/uL (4.8-10.8) H 03/16/21 16:16 RBC 4.69 M/uL (4.7-6.1) L 03/16/21 16:16 Hgb 14.4 g/dL (14.0-18.0) 03/16/21 16:16 Hct 43.0 % (42-52) 03/16/21 16:16 MCV 91.7 fL (80-100) 03/16/21 16:16 MCH 30.7 pg (25-34) 03/16/21 16:16 MCHC 33.5 g/dL (32-36) 03/16/21 16:16 RDW Std Deviation 45.9 fL (36.4-46.3) 03/16/21 16:16 RDW Coeff of Penny 13.7 % (11.5-14.5) 03/16/21 16:16 Plt Count 289 K/uL (130-400) 03/16/21 16:16 MPV 10.6 fL (7.4-10.4) H 03/16/21 16:16 Immature Gran % (Auto) 0.8 % 03/16/21 16:16 Neut % (Auto) 64.8 % 03/16/21 16:16 Lymph % (Auto) 26.7 % 03/16/21 16:16 [place] % (Auto) 6.8 % 03/16/21 16:16 Eos % (Auto) 0.5 % 03/16/21 16:16 Baso % (Auto) 0.4 % 03/16/21 16:16 Neut # (Auto) 9.85 K/uL (1.4-6.5) H 03/16/21 16:16 Lymph # (Auto) 4.06 K/uL (1.2-3.4) H 03/16/21 16:16 [place] # (Auto) 1.03 K/uL (0.11-0.59) H 03/16/21 16:16 Eos # (Auto) 0.08 K/uL (0-0.5) 03/16/21 16:16 Baso # (Auto) 0.06 K/uL (0-0.2) 03/16/21 16:16 Immature Gran # (Auto) 0.12 K/uL (0.00-0.02) H 03/16/21 16:16 Sodium 138 mmol/L (136-145) 03/16/21 16:16 Potassium 4.0 mmol/L (3.5-5.1) 03/16/21 16:16 Chloride 108 mmol/L (98-107) H 03/16/21 16:16 Carbon Dioxide 24 mmol/L (21-32) 03/16/21 16:16 Anion Gap 6.0 (3-11) 03/16/21 16:16 BUN 15 mg/dl (7-18) 03/16/21 16:16 Creatinine 0.82 mg/dl (0.6-1.4) 03/16/21 16:16 Est Cr Clr Drug Dosing 167.0 ml/min 03/16/21 16:16 Est GFR ( Amer) 129.1 ml/min 03/16/21 16:16 Est GFR (Non-Af Amer) 111.4 ml/min 03/16/21 16:16 BUN/Creatinine Ratio 18.2 (10-20) 03/16/21 16:16 Glucose 89 mg/dl (70-99) 03/16/21 16:16 Calcium 9.2 mg/dl (8.5-10.1) 03/16/21 16:16 Lumbar Spine MRI 03/06/21: Lumbar spine: Vertebral body height and alignment are maintained throughout the lumbar spine. There is straightening of the lumbar lordosis. Tiny anterior osteophytes are noted. The transverse and spinous processes appear intact. There are bilateral pars defects at L5. A tiny hemangioma is incidentally noted in the body of L2. No destructive bony lesion is seen. Intervertebral discs: There is minimal disc desiccation. There is mild loss of height at T12-L1, L1-L2, and L2-L3. The remaining disc spaces are preserved. Spinal cord: The visualized spinal cord is normal in morphology and signal intensity. The conus medullaris terminates at the level of L1. The nerve roots of the cauda equina are normal in morphology. T12-L1: There is a posterior disc osteophyte complex eccentric to the right. This causes mild to moderate central canal stenosis. The minimum AP canal diameter measures 7 mm. There is at least mild bilateral neural foraminal stenosis, right greater than left. L1-L2: There is a posterior disc osteophyte complex. This causes mild to mod erate central canal stenosis with a minimum AP diameter of 7.5 mm. This abuts the transiting bilateral nerve roots. There is bilateral subarticular stenosis and at least mild bilateral neural foraminal narrowing. L2-L3: There is a large posterior disc osteophyte complex. This causes moderate central canal stenosis with a minimum AP diameter of 5.5 mm. This impinges on the transiting bilateral nerve roots. There is bilateral subarticular stenosis. This may abut the exiting left L2 nerve root. In conjunction with facet arthropathy there is minimal neural foraminal narrowing. L3-L4: There is minimal posterior disc bulge with annular fissure. There is mild central canal stenosis at this level with a minimum AP diameter of 8 mm. There is bilateral subarticular stenosis which may abut the exiting bilateral L3 nerve roots. In conjunction with facet arthropathy there is minimal right and mild left neural foraminal stenosis. L4-L5: There is minimal posterior disc bulge with annular fissure. The central canal is clear. There is bilateral subarticular stenosis. In conjunction with facet arthropathy there is moderate bilateral neural foraminal stenosis. L5-S1: The central canal is clear. Mild facet arthropathy is of no consequence. The neural foramina are patent. Sacrum: The visualized sacrum is normal in morphology and signal intensity. A 9 mm Tarlov cyst is incidentally noted at the level of S2. Soft tissues: The paraspinous soft tissues are normal in appearance. The retroperitoneal structures are grossly unremarkable but incompletely assessed. IMPRESSION: 1. Multilevel lumbosacral spondylosis as above with multilevel acquired compromise of the central canal. This is not appreciably changed as compared to 12/07/2020. See discussion for detailed level by level analysis. 2. No destructive bony lesion is seen. Supervising Physician Co-Signing Physician Notes I personally examined the patient and verified all hensley points of history and exam, discussed case, and agree with decision making with Dr Phelan Back pain, right buttock pain, pain radiating around thigh. Seems to predominantly started after a fall fairly squarely onto his buttocks several months ago. He has sought significant care but has not really had much relief. His pain got to the point of basically being intractable, and he was direct admitted for further evaluation, to craft a game plan, and for control of his now intractable pain. Vitals noted, in general he is awake and alert laying very still in bed, pleasant, but appears to not be moving much to avoid any pain type distress. HEENT normocephalic atraumatic mucous membranes moist. Breathing unlabored no accessory muscle use good effort. Musculoskeletal/osteopathic shows right-sided buttock musculature to be high in tone, tender, decreased range of motionpost isometric relaxation done in 2 planes of motion (stretching and internal rotation with him doing isometric contraction and external rotation, as well as stretching at hip flexion having him doing isometric contraction and hip extension) patient tolerated well. Prior diagnostics, most notably MRI L-spine showing a reasonably significant L3 disc bulge reviewed. Intractable back painseems to be both biomechanical and an L3 radiculopathy. L3 radiculopathycontinue trial of steroids, pain management/orthopedics consults to evaluatehopefully he will be more of a candidate for LESI than needing decompressive surgery. Once he is stable to be discharged, decompression/traction therapy as well. Pain control, continue to titrate gabapentin for now. Biomechanical back painshows pelvic somatic dysfunction consistent with a lot of his pain as well. OMT as above. Valium as a muscle relaxant, topical d iclofenac, otherwise overall pain control. DVT prophylaxishe is young and fairly low risk, although I doubt he will be very ambulatory at first, we will work on ambulation as our goal for DVT prophy laxis. If he ends up bedbound for more than a anticipate, then we may need to initiate pharmacologic therapy. otherwise as above Resident Activity Tracking Resident Involvement: Resident Care Provided Care Provided: Adult Hospital Medicine (1) Lower back pain Back pain laterality: midline Chronicity: acute Sciatica laterality: sciatica of right side Sciatica presence: with sciatica Qualified Code(s): M54.41 - Lumbago with sciatica, right side
[2021-03-16] MEDS ORDERED: POLYETHYLENE (MIRALAX) 17 GM PACK PO PRN (15:03)
[2021-03-16] MEDS ORDERED: ONDANSETRON INJ 2 MG/ML 2 ML VIAL IV PRN (15:03)
[2021-03-16] MEDS ORDERED: MAGNESIUM HYDROXIDE SUSP 30 ML UDC PO PRN (15:03)
[2021-03-16] MEDS ORDERED: MoRPHine SULFATE 2 MG/ML CARP IV PRN (15:06)
[2021-03-16] MEDS: MoRPHine SULFATE 4 MG/ML 1 ML CARP\\VIAL IV PRN ×3 (15:35→20:18)
[2021-03-16] MEDS ORDERED: MELATONIN 3 MG TAB PO PRN (16:26)
[2021-03-16] MEDS ORDERED: diazePAM 5 MG TABLET PO PRN (16:29)
[2021-03-16 16:41] LABS: Basophils # (auto) 0.06 K/uL (0-0.2); Basophils % (auto) 0.4 %; Eosinophils # (auto) 0.08 K/uL (0-0.5); Eosinophils % (auto) 0.5 %; Hemoglobin 14.4 g/dL (14.0-18.0); Immature Granulocytes # (auto) 0.12 K/uL (0.00-0.02); Immature Granulocytes % (auto) 0.8 %; Lymphocytes # (auto) 4.06 K/uL (1.2-3.4); Lymphocytes % (auto) 26.7 %; Mean Corpuscular Hemoglobin 30.7 pg (25-34); Mean Corpuscular Hgb Conc 33.5 g/dL (32-36); Mean Corpuscular Volume 91.7 fL (80-100); Mean Platelet Volume 10.6 fL (7.4-10.4); Monocytes # (auto) 1.03 K/uL (0.11-0.59); Monocytes % (auto) 6.8 %; Neutrophils # (auto) 9.85 K/uL (1.4-6.5); Neutrophils % (auto) 64.8 %; Platelet Count 289 K/uL (130-400); RDW Coefficient of Variation 13.7 % (11.5-14.5); RDW Standard Deviation 45.9 fL (36.4-46.3); Red Blood Count 4.69 M/uL (4.7-6.1)
[2021-03-16] MEDS ORDERED: NICOTINE 7 MG/24 HR TDSY TD SCH (17:00)
[2021-03-16 17:05] LABS: BUN Creatinine Ratio 18.2 (10-20); Calcium 9.2 mg/dl (8.5-10.1); Est GFR (African American) 129.1 ml/min; Est GFR (Non-African American) 111.4 ml/min
--- NOTE | 2021-03-16 17:05 | Billing Data ---
Date of Service March 16, 2021 Coding Level of Care Code 06449 Initial Inpt Care Lvl 2
[2021-03-16] MEDS: methylPREDNISolone 20 MG in SYRINGE 0 ML IV SCH (17:16)
[2021-03-16] MEDS: NICOTINE 14 MG/24 HR PATCH TD SCH (17:16)
[2021-03-16] MEDS: DICLOFENAC SOD 1% GEL 100 GM TUBE EXT SCH ×2 (17:16→20:13)
[2021-03-16] MEDS: ACETAMINOPHEN 500 MG TAB PO SCH ×2 (17:16→20:15)
[2021-03-16] MEDS: KETOROLAC TROMETHAMINE 15 MG/ML VIAL IV PRN (17:17)
[2021-03-16] MEDS ORDERED: ATORVASTATIN 10 MG TAB PO SCH (21:00)
[2021-03-16] MEDS ORDERED: OLMESARTAN MEDOXOMIL 20 MG TAB PO SCH (21:00)
[2021-03-16] MEDS ORDERED: GABAPENTIN 300 MG CAP PO SCH ×2 (21:00)
[2021-03-16] MEDS ORDERED: ESCITALOPRAM OXALATE 20 MG TAB PO SCH (21:00)
[2021-03-17] MEDS: ACETAMINOPHEN 500 MG TAB PO SCH ×5 (00:07→15:14)
[2021-03-17] MEDS: MoRPHine SULFATE 4 MG/ML 1 ML CARP\\VIAL IV PRN (04:28)
[2021-03-17] MEDS ORDERED: MoRPHine SULFATE 2 MG/ML CARP IV PRN (07:12)
[2021-03-17] MEDS: NICOTINE 14 MG/24 HR PATCH TD SCH (08:02)
[2021-03-17] MEDS: methylPREDNISolone 20 MG in SYRINGE 0 ML IV SCH (08:03)
[2021-03-17] MEDS: GABAPENTIN 300 MG CAP PO SCH ×2 (08:03→13:03)
[2021-03-17] MEDS: DICLOFENAC SOD 1% GEL 100 GM TUBE EXT SCH ×3 (08:03→16:44)
--- NOTE | 2021-03-17 08:54 | Pain Management Consultation ---
Date of Consultation March 17, 2021 Assessment & Plan (1) Fall: (2) Lower back pain: Back pain laterality: midline Chronicity: acute Sciatica laterality: bilateral sciatica Sciatica presence: with sciatica Qualified Code(s): M54.42 - Lumbago with sciatica, left side; M54.41 - Lumbago with sciatica, right side (3) Myofascial pain: The majority of the patient's pain does not appear to be related to lumbar radiculopathy but rather myofascial in nature. There is little low back pain and he describes a numbness of the anterior thighs that could be radicular in nature but the majority of his pain is in the hamstrings that is worse with sitting. I do not suspect a lumbar epidural injection to be beneficial. Recommend physical therapy. I did order Oxycodone and Baclofen to take orally. I did ask the patient o limit the use of IV Morphine as it may delay his future discharge if still requiring it and he understands. History of Present Illness Reason for Consultation: Pain Attending Physician: Wilberto Cheatham, History of Present Illness Mr. Bhatia is a 40 year old male that has been seen in consultation at [facility] for back and leg pain. He states that the pain started in December when he fell while turkey hunting. Since that time he has tried oral steroids, Percocet, Tramadol, Flexeril, Tylenol and Ibuprofen. There is an ache in the right low back. Pain in the right ASIS. Numbness along the anterior thighs. The majority of his pain is a tightness sensation in his hamstrings when in the sitting position. He is reporting moderate limitation into his daily activities due to the pain. No bowel/bladder incontinence, saddle anesthesia, foot drop, leg weakness. Allergies Allergy/AdvReac Type Severity Reaction Status Date / Time hydrocodone [From Vicodin] Allergy Mild Rash Verified 02/18/21 00:47 NSAIDS (Non-Steroidal AdvReac Severe PERITONEAL Verified 02/18/21 00:47 Anti-Inflamma PERFORATION ISSUES lisinopril AdvReac Intermediate Cough Verified 02/18/21 00:47 Home Medications Medication Instructions Recorded Confirmed Type olmesartan [Benicar] 20 mg PO HS 11/04/20 02/18/21 History tramadol 100 mg PO HS 11/04/20 02/18/21 History tramadol 50 mg PO Q6H PRN 12/06/20 02/18/21 History atorvastatin 10 mg PO HS 01/11/21 02/18/21 History escitalopram oxalate [Lexapro] 20 mg PO HS 01/11/21 02/18/21 History fluticasone propionate [Flonase] 2 spray INTRANASAL HS 01/11/21 02/18/21 History prednisone 20 mg PO DAILY #18 tab 02/18/21 Rx Pain History Pain Location Full Body Front + Back: 1. 2. 3. 4. Pain Intensity [facility] Combined Pain Scale: 5-Moderate - Cannot perform normal tasks without increase in pain Patient History Medical History Acromioclavicular separation, type 1 Bicipital tendonitis of right shoulder Cervical spinal cord compression Lumbar radiculopathy, acute Uncontrolled hypertension Vertigo Surgical History History of fusion of cervical spine History of hand surgery Family History Other No pertinent family history Social History Smoking Status: Current every day smoker Tobacco Type: Cigarettes Cigarettes Per Day: 10-20; Second Hand Exposure: No; Do You Dip or Chew Tobacco: No; Tobacco Cessation Education Requested by Patient: No Hx Alcohol Use: No Hx Substance Use: No Preferred Language: Swedish Communication Ability: Effective Bioengineer Required: No Beliefs That Will Affect Care: None marital status details: Current Living Situation: Spouse and Family current occupational status: employed Other Information That Helps Us Care for You: No Feels Safe at Home: Yes Safety Concerns: Feels Safe At This Time Assistive Devices: None Physical Exam Physical Exam: GENERAL: This is a 40 year old male that does not appear in acute distress. HEAD/FACE: Normocephalic and atraumatic. EYES: No drainage or conjunctival injection. ENT: Nose without bleeding or discharge. Oral mucosa moist. NECK: Full ROM without apparent pain. No swelling or masses noted. RESPIRATORY: Patient with unlabored breathing. No signs of respiratory distress. CHEST/AXILLA: Chest movement symmetrical. No deformities noted. ABDOMEN/GI: No distension BACK: Moves without difficulty. There is mild tenderness along the right L5-S1 facet joint. No midline or SI joint tenderness. Mild right paravertebral muscle spasm. No piriformis muscle spasm or tenderness. SKIN: [place], warm and dry. No rash noted. MS/EXTREMITY: There is 5/5 strength of the lower extremities. There is no tenderness of the hamstrings. No trochanteric bursa tenderness. There is exquisite tenderness of the right ASIS. Negative straight leg raise. NEURO: Alert and appears oriented. Speech is fluent. Cranial Nerves are grossly intact. PSYCH: Alert, pleasant, affect is calm Results (Pain Clinic) Diagnostic Review MRI Findings: MRI OF THE LUMBAR SPINE WITHOUT IV CONTRAST CLINICAL HISTORY: Intermittent lower extremity numbness. Low back pain. COMPARISON STUDY: MRI of lumbar spine dated 12/07/2020. Abdominal CT dated 11/04/2020. TECHNIQUE: MRI of the lumbar spine is performed utilizing various T1 and T2- weighted sequences in the axial and sagittal planes. IV contrast was not administered for this examination. The examination is degraded by motion artifact. FINDINGS: Lumbar spine: Vertebral body height and alignment are maintained throughout the lumbar spine. There is straightening of the lumbar lordosis. Tiny anterior osteophytes are noted. The transverse and spinous processes appear intact. There are bilateral pars defects at L5. A tiny hemangioma is incidentally noted in the body of L2. No destructive bony lesion is seen. Intervertebral discs: There is minimal disc desiccation. There is mild loss of height at T12-L1, L1-L2, and L2-L3. The remaining disc spaces are preserved. Spinal cord: The visualized spinal cord is normal in morphology and signal intensity. The conus medullaris terminates at the level of L1. The nerve roots of the cauda equina are normal in morphology. T12-L1: There is a posterior disc osteophyte complex eccentric to the right. This causes mild to moderate central canal stenosis. The minimum AP canal diameter measures 7 mm. There is at least mild bilateral neural foraminal stenosis, right greater than left. L1-L2: There is a posterior disc osteophyte complex. This causes mild to moderate central canal stenosis with a minimum AP diameter of 7.5 mm. This abuts the transiting bilateral nerve roots. There is bilateral subarticular stenosis and at least mild bilateral neural foraminal narrowing. L2-L3: There is a large posterior disc osteophyte complex. This causes moderate central canal stenosis with a minimum AP diameter of 5.5 mm. This impinges on the transiting bilateral nerve roots. There is bilateral subarticular stenosis. This may abut the exiting left L2 nerve root. In conjunction with facet arthropathy there is minimal neural foraminal narrowing. L3-L4: There is minimal posterior disc bulge with annular fissure. There is mild central canal stenosis at this level with a minimum AP diameter of 8 mm. There is bilateral subarticular stenosis which may abut the exiting bilateral L3 nerve roots. In conjunction with facet arthropathy there is minimal right and mild left neural foraminal stenosis. L4-L5: There is minimal posterior disc bulge with annular fissure. The central canal is clear. There is bilateral subarticular stenosis. In conjunction with facet arthropathy there is moderate bilateral neural foraminal stenosis. L5-S1: The central canal is clear. Mild facet arthropathy is of no consequence. The neural foramina are patent. Sacrum: The visualized sacrum is normal in morphology and signal intensity. A 9 mm Tarlov cyst is incidentally noted at the level of S2. Soft tissues: The paraspinous soft tissues are normal in appearance. The retroperitoneal structures are grossly unremarkable but incompletely assessed. IMPRESSION: 1. Multilevel lumbosacral spondylosis as above with multilevel acquired com promise of the central canal. This is not appreciably changed as compared to 12/07/2020. See discussion for detailed level by level analysis. 2. No destructive bony lesion is seen. Electronically signed by: Piyush Martinez M.D. 03/06/2021 10:27 PM MR femur RT wo con CLINICAL HISTORY: Right thigh pain. History of trauma. COMPARISON STUDY: CT scan of the right femur dated 01/11/2021 FINDINGS: Images were acquired in the axial, sagittal, and coronal planes. There are no areas of marrow replacement to indicate neoplasm. There are no areas of marrow replacement to indicate occult fracture or bone bruise. There is a peritrochanteric increased T2 signal consistent with a trochanteric bursitis. There is no pathologic intramuscular edema within the thigh. There are no soft tissue masses identified on this noncontrast study. IMPRESSION: 1. Right hip trochanteric bursitis 2. No soft tissue masses identified 3. No evidence of occult fracture. No evidence of pathologic marrow replacement. ACT 112: Negative or not required by law. Electronically signed by: Miguel Angel Gavin M.D. 02/18/2021 10:05 AM LUMBAR SPINE MRI HISTORY: intermittent leg numbness, more L leg, back pain TECHNIQUE: Multiplanar multisequence MRI of the lumbar spine was performed without the use of contrast. COMPARISON: Lumbar spine radiograph 07/17/2019. Lumbar spine MRI 03/12/2017. FINDINGS: For the purpose of the report the L5-S1 disc space will be located on axial image 27 of 30. No fracture or subluxation. Moderate disc space narrowing at T12-L1 and mild disc space narrowing at L1-L2 and L2-L3. This is similar to the prior study. The conus terminates at the T12-L1 disc space level. L5 spondylolysis is again noted. Paravertebral soft tissues are unremarkable. Mild facet degenerative changes within the lower lumbar spine. There is 3 mm of anterolisthesis of L5 on S1, unchanged. Small L5 vertebral body hemangioma remains stable. T12-L1: Broad-based posterior disc bulge with a 5 mm right paracentral focal disc protrusion. This has progressed in the interval and results in mild anterior deformity of the conus consistent with moderate central canal narrowing. There is also mild right-sided neural foraminal narrowing at this level. L1-L2: Broad-based posterior disc bulge resulting in mild central canal narrowing. No significant neural foraminal narrowing. L2-L3: Broad-based posterior disc bulge with a small right paracentral focal disc protrusion. This results in moderate central canal and mild bilateral neural foraminal narrowing. This is similar to the prior study. L3-L4: Small broad-based posterior disc bulge resulting in mild central canal and mild bilateral neural foraminal narrowing. L4-L5: Small broad-based posterior disc bulge with facet hypertrophy resulting in mild central canal narrowing. L5-S1: No significant central canal or neural foraminal narrowing. IMPRESSION: 1. No fractures within the lumbar spine. 2. Broad-based posterior disc bulge with a 5 mm right paracentral focal disc protrusion at T12-L1. This has progressed in the interval results in mild anterior deformity of the conus consistent with [id number] central canal narrowing. 3. Broad-based posterior disc bulge with a small right paracentral focal disc protrusion at L2-L3 resulting in moderate central canal narrowing. This is tory lar to the prior study. 4. Additional degenerative changes as described above. ACT 112: Negative or not required by law. Electronically signed by: Benigno Auguste M.D. 12/07/2020 9:[address] Findings: CT femur RT wo con HISTORY: 40 years-old Male Quadricep pain, anterior thigh pain right leg/inju acute pain of the right mid thigh status post trauma COMPARISON: CT abdomen and pelvis 11/04/2020 TECHNIQUE: Multiple axial CT images of the right femur were obtained without the use of IV contrast. A dose lowering technique was used consistent with the principals of ALARA. FINDINGS: No acute fracture, dislocation, avascular necrosis or significant osteoarthritis of the right knee or hip. Bone mineralization appears normal. There are no suspicious bone lesions. The imaged intrapelvic structures appear unremarkable. No joint effusion, soft tissue swelling or intramuscular hematoma. Mild nonspecific anterior subcutaneous edema of the knee. Small Quinonez's cyst. IMPRESSION: 1. No acute fracture. 2. No acute soft tissue injury. ACT 112: Negative or not required by law. The above report was generated using voice recognition software. It may contain grammatical, syntax or spelling errors. Electronically signed by: Volodymyr Morales M.D. 01/12/2021 8:07 AM Radiology Findings: XR hip RT 2V w pelvis CLINICAL HISTORY: Right hip pain. COMPARISON: CT of the right femur January 11, 2021. FINDINGS: Sacroiliac joints and symphysis pubis are intact. No acute fracture within the pelvis or hips is identified. No osseous lesion is identified. Hip joint spaces are preserved. IMPRESSION: No acute fracture within the pelvis or hips. ACT 112: Negative or not required by law. Electronically signed by: Leopoldo Liz M.D. 01/23/2021 5:17 PM
[2021-03-17] MEDS ORDERED: POLYETHYLENE (MIRALAX) 17 GM PACK PO SCH (09:00)
[2021-03-17] MEDS ORDERED: ENOXAPARIN INJ 40 MG/0.4 ML SYR SQ SCH (09:00)
[2021-03-17] MEDS ORDERED: ESCITALOPRAM OXALATE 20 MG TAB PO SCH (09:00)
[2021-03-17] MEDS ORDERED: predniSONE 20 MG TAB PO SCH (09:00)
[2021-03-17] MEDS: BACLOFEN 10 MG TAB PO SCH ×2 (09:15→13:02)
[2021-03-17] MEDS: oxyCODONE HCL IR 5 MG TAB (IMMEDIATE RELEASE) PO PRN ×2 (09:15→15:14)
--- NOTE | 2021-03-17 10:54 | Hospitalist Progress Note ---
Date of Service March 17, 2021 Assessment & Plan (1) Lumbosacral spondylosis with radiculopathy: 40 yo M with hx multiple bony injuries admitted for pain control and management of worsening spondylitic lumbosacral lesions and biomechanical muscle pain. 1. Lumbosacral Spondylosis with radiculopathy causing neuropathic pain - appreciate pain management recommendations for acute and chronic titration of pain control going forward - appreciate recommendations from orthopedic spine surgery regarding surgical indications/options for conservative measurements - gabapentin 300 BID, 600 HS - outpatient steroid taper converted to 20 mg IV methylpred daily - morphine 2 mg Q2H for moderate pain, 4mg Q2H for severe pain - tylenol 500 mg Q4H davi 2. Biomechanical pelvic girdle pain - likely due to chronically over-contracted muscles in glutes/low back/adductors to stabilize pelvis - voltaren gel scheduled QID, heating pad - toradol 15 mg Q6 IV. avoid additional NSAIDs given hx gastric ulcer while on steroids as well - diazepam 5 mg PO TID PRN for muscle tightness/pain Tobacco Use - 0.5 -1 ppd, open to quitting - 14 mg nicotine patch Hx gastric ulcer - famotidine HTN - cont olmesartan 20 mg HS Anxiety - cont lexapro AM HLD - cont statin 10 mg Misc PRNs - melatonin for sleep - zofran for nausea DVT ppx: lovenox FEN/GI: heart healthy, low salt diet, famotidine Bowel regimen: Miralax davi,+ prn MagOx prn Code Status: Full Code Dispo: Med/Surg (2) Lower back pain: (3) Lumbar disc herniation: (4) Uncontrolled hypertension: (5) Hx of gastric ulcer: Admission and Anticipated Discharge Date Admission Date: March 16, 2021 Results & Data Results & Data ([facility]) Vital Signs (Past 12 Hours) Vital Signs Temp Pulse Resp BP Pulse Ox 03/17/21 07:15 36.6 C 67 16 146/92 H 100 (1) Lower back pain Back pain laterality: midline Chronicity: acute Sciatica laterality: sciatica of right side Sciatica presence: with sciatica Qualified Code(s): M54.41 - Lumbago with sciatica, right side
[2021-03-17] MEDS: KETOROLAC TROMETHAMINE 15 MG/ML VIAL IV PRN ×2 (11:26→17:59)
--- NOTE | 2021-03-17 11:39 | Orthopedic Consultation ---
Date of Consultation March 17, 2021 Assessment & Plan (1) Lumbar disc herniation with radiculopathy: I have a discussion with this patient reviewing his clinical presentation and MRI findings. I reviewed his MRI with radiology. It is our belief he has a massive disc herniation at L1-L2 with severe stenosis and disc condition at L2- L3. Clearly this would account for his presentation. Fortunately he is improving. He is at risk for return of symptoms. At this point I would not recommend any surgical intervention. He can undergo walking and activity as tolerated. Avoid any lifting greater than 5 to 10 pounds. Obviously if his symptoms return we may have to consider surgical intervention. Patient stands and agrees. Present on Admission?: Yes History of Present Illness Reason for Consultation: Back and leg pain Attending Physician: Wilberto Cheatham, History of Present Illness This is a 40-year-old male who presents to the emergency room yesterday with severe onset of back and bilateral leg pain. Radiating to the buttocks hamstrings groin and anterior thighs. It is quite debilitating in nature. This morning he is somewhat improved. He denies any difficulty with bowel or bladder control. Denies any perineal numbness. He has been up and ambulating this morning without difficulty. He still states that he has posterior hamstring pain with standing and walking. Again overall at this point he is markedly improved. Allergies Allergy/AdvReac Type Severity Reaction Status Date / Time hydrocodone [From Vicodin] Allergy Mild Rash Verified 02/18/21 00:47 NSAIDS (Non-Steroidal AdvReac Severe PERITONEAL Verified 02/18/21 00:47 Anti-Inflamma PERFORATION ISSUES lisinopril AdvReac Intermediate Cough Verified 02/18/21 00:47 Home Medications Medication Instructions Recorded Confirmed Type olmesartan [Benicar] 20 mg PO HS 11/04/20 02/18/21 History tramadol 100 mg PO HS 11/04/20 02/18/21 History tramadol 50 mg PO Q6H PRN 12/06/20 02/18/21 History atorvastatin 10 mg PO HS 01/11/21 02/18/21 History escitalopram oxalate [Lexapro] 20 mg PO HS 01/11/21 02/18/21 History fluticasone propionate [Flonase] 2 spray INTRANASAL HS 01/11/21 02/18/21 History prednisone 20 mg PO DAILY #18 tab 02/18/21 Rx Patient History Medical History Acromioclavicular separation, type 1 Bicipital tendonitis of right shoulder Cervical spinal cord compression Lumbar radiculopathy, acute Uncontrolled hypertension Vertigo Surgical History History of fusion of cervical spine History of hand surgery Family History Other No pertinent family history Social History Smoking Status: Current every day smoker Tobacco Type: Cigarettes Cigarettes Per Day: 10-20; Second Hand Exposure: No; Do You Dip or Chew Tobacco: No; Tobacco Cessation Education Requested by Patient: No Hx Alcohol Use: No Hx Substance Use: No Preferred Language: British Communication Ability: Effective Enrollment Consultant Required: No Beliefs That Will Affect Care: None marital status details: Current Living Situation: Spouse and Family current occupational status: employed Other Information That Helps Us Care for You: No Feels Safe at Home: Yes Safety Concerns: Feels Safe At This Time Assistive Devices: None Physical Exam Physical Exam: On exam he does appear comfortable. He has good strength testing plantar flexion dorsiflexion quadriceps. Sensory symmetric and intact. I do not elicit any gross tension signs with straight leg raising. Results & Data ([facility]) Vital Signs (Past 12 Hours) Vital Signs Temp Pulse Resp BP Pulse Ox 03/17/21 07:15 36.6 C 67 16 146/92 H 100
[2021-03-17] MEDS ORDERED: LABETALOL HCL IV 5 MG/ML 20ML IV STA (15:47)
--- NOTE | 2021-03-17 16:22 | Discharge Summary ---
Date of Service March 17, 2021 Admission HPI Per Admitting Provider 40 yo M known to me who has been experiencing worsening low back/bilateral hip pain since December 2020. Initial injury : was [place], jumped off log on the ground and landed in snow where right foot sharply slammed into the ground and then gave way underneath him leading him to fall. Pain originated in his right quad, but without control, spread to left and hip girdles as he compensated for the right quad pain with other movements. Currently describes pain as being sharp, burning, "ramming" through his whole lower half and up through his whole body when worsened. 8/10 at rest sitting at the side of the bed due to pressure on the posterior half of his thighs. Denies being able to lay on stomach due to pain from extending legs. When rotating position in bed, has to push thighs together and force them to the side in order to move because active adduction/abduction causes excruciating pain. Says the pain frequently radiates into his groin/mid thigh region and feels like when he tore his meniscus in his knee. Denies any loss of bowel/bladder. No saddle anesthesia. Failed outpatient regimen: flexeril 20 mg HS, gabapentin 300 mg HS + 200 BID, 3200mg Ibuprofen, 4500 mg Tylenol, tramadol 50 mg Q6H, Prednisone 60 mg taper x 2. Evaluated in [facility] clinic on 03/09, at which point taken off NSAIDs and Tylenol and initiated on gabapentin. Admission Exam Per Admitting Provider Constitutional: sitting at side of bed in evident pain but able to converse Eyes: EOMI, pupils equal and reactive bilaterally, no scleral icterus Cardiac: RRR, no murmurs, gallops or rubs. Normal S1, S2 Pulm: CTA BL, no wheezes, rhonchi, crackles or rubs, moving air well throughout both lungs Abd: soft, nontender, nondistended, normal bowel sounds, no rebound or guarding Extremities: 2+ peripheral pulses, no edema Back: TTP from L3 down on spine, TTP at BL paraspinals in same region, TTP R ASIS MSK: strength 5/5 at toes, ankles, knees, hips BL. Neuro: patellar reflexes intact. numbness in area of L2/L3 on right thigh Principal Diagnosis intractable back pain Discharge Exam Constitutional: obese, in no apparent distress, sitting comfortably in bed. Eyes: EOMI, pupils equal and reactive bilaterally, no scleral icterus Cardiac: RRR, no murmurs, gallops or rubs. Normal S1, S2 Pulm: CTA BL, no wheezes, rhonchi, crackles or rubs, moving air well throughout both lungs Abd: soft, nontender, nondistended, normal bowel sounds, no rebound or guarding Extremities: 2+ peripheral pulses, no edema Neuro: no focal deficits, moving all 4 limbs, A&Ox3 MSK: standing, walking easily. more discomfort with sitting but improving. Discharge Data Allergies Allergy/AdvReac Type Severity Reaction Status Date / Time hydrocodone [From Vicodin] Allergy Mild Rash Verified 02/18/21 00:47 NSAIDS (Non-Steroidal AdvReac Severe PERITONEAL Verified 02/18/21 00:47 Anti-Inflamma PERFORATION ISSUES lisinopril AdvReac Intermediate Cough Verified 02/18/21 00:47 Consultations 03/16/21 15:03 Consult Orthopedic Surgery Routine 03/16/21 16:20 Consult Pain Management Routine Hospital Course (1) Lumbosacral spondylosis with radiculopathy: 40 yo M with hx multiple bony injuries admitted for pain control and management of worsening spondylitic lumbosacral lesions and biomechanical muscle pain. 1. Lumbosacral Spondylosis with radiculopathy causing neuropathic pain - gabapentin 300 BID, 600 HS - Steroid taper 30 pred - tylenol 500 mg Q4H davi - PT/OMT 2. Biomechanical pelvic girdle pain - likely due to chronically over-contracted muscles in glutes/low back/adductors to stabilize pelvis - voltaren gel scheduled QID, heating pad - baclofen 10 mg TID - oxycodone 5 Q6/pre-pt (2) Lower back pain: (3) Lumbar disc herniation: (4) Uncontrolled hypertension: (5) Hx of gastric ulcer: Total Time Total Time Spent Total Time Spent (In Minutes): <30 Discharge Plan Discharge Items Patient Disposition: Home - Self-Care Reason For Visit: BACK PAIN Discharge Diagnosis: Pelvic muscle contracture, spondyloarthropathy Activity: Per Instructions section Lifting: Gradually increase as tolerated Exercise/Sports: Wait until after follow-up appointment Non-emergency contact: Primary Care Provider Call non-emergency contact if: you have any medication questions, your symptoms worsen and your pain is worsening Follow-up/Referrals: Liv Phelan MD [Primary Care Provider] - Diet: Regular Addtl Attending Provider Instructions: Back Pain: mixed source between pelvic stabilizer muscle pain and nerve compression from disc disease and spondyloarthropathy. Pelvic Muscle Stabilizers: - Plan: baclofen 10 mg three times a day, oxycodone 5mg pre-PT, warm compresses, physical therapy, OMT (Osteopathic Manipulation Treatment) - Goal: stretching out and loosening the tight, contracted muscles that are pulling on parts of your hips and low back - Pain region -- this causes the pain in your low back and under your thighs when you sit down and put pressure on them, as well as your trouble sitting, standing and bending forward. Compressive Disc Disease: - Plan: oxycodone 5 mg every 6 hours as needed for worsening pain, prednisone taper to allow continuing decrease in inflammation surrounding discs, gabapentin 300 twice a day, gabapentin 600 at nighttime - Goal: reduction of inflammation and swelling around disc, as well as reducing nerve pain due to disc disease to reduce likelihood of needing surgery in the future. - Pain region -- this causes the numbness in your right thigh, and the burning, shooting pains you experience going down the back of your legs - Concerning signs and symptoms: loss of bladder or bowel control, numbness or tingling in your groin/rectum. Do not drink alcohol while taking oxycodone. Do not drive or operate heavy machinery or go hunting if you feel drowsy on these medications. I recommend you continue to use the miralax daily to help keep your bowels moving as narcotics can cause your bowels to slow down and induce constipation. Pending Studies at Discharge: No Stand-Alone Forms: [facility], Opioid Pain Management, Smoking Cessation Medications and DC Order Prescriptions: New baclofen 10 mg Tablet 10 mg PO TID 30 Days Qty: 90 RF: 0 polyethylene glycol 3350 [Miralax] 17 gram Powder In Packet 17 g PO DAILY 30 Days Qty: 30 RF: 0 gabapentin 300 mg Capsule 300 mg PO BID@0900,1400 30 Days Qty: 60 RF: 0 gabapentin 300 mg Capsule 600 mg PO HS 30 Days Qty: 60 RF: 0 oxycodone 5 mg Tablet 5 mg PO Q6H PRNQty: 0 RF: 0 prednisone 10 mg tablet See Rx Instructions .ROUTE .COMPLEX Qty: 18 RF: 0 prednisone 1 mg tablet See Rx Instructions .ROUTE .COMPLEX Qty: 18 RF: 0 oxycodone 5 mg tablet 5 mg PO Q6H PRN (Reason: pain) Qty: 20 RF: 0 Continued atorvastatin 10 mg Tablet 10 mg PO HS RF: 0 fluticasone propionate 50 mcg/actuation [place],Suspension 2 spray INTRANASAL HS RF: 0 olmesartan [Benicar] 20 mg tablet 20 mg PO HS Qty: 30 RF: 0 escitalopram oxalate [Lexapro] 20 mg Tablet 20 mg PO HS Qty: 30 RF: 0 Discontinued tramadol 100 mg tablet extended release 24 hr 100 mg PO HS RF: 0 prednisone 20 mg tablet 20 mg PO DAILY Qty: 18 RF: 1 tramadol 50 mg Tablet 50 mg PO Q6H PRN (Reason: Pain) RF: 0 Discharge Orders: Discharge Order (Routine); Ordered 03/17/21 Ordered By: Liv Phelan Admission Data Admit Date/Time: 03/16/21 14:37 Attending Provider: Wilberto Cheatham Admit Provider: Wilberto Cheatham Primary Care Provider: Liv Phelan Other Providers: Clark Cornelius ; Lida Arellano Other Interventions: Discharge Summary Assessment (RN) Last Done: 03/17/21 17:48 Supervising Physician Co-Signing Physician Notes I personally examined the patient and verified all hensley points of history and exam, discussed case, and agree with decision making with Dr Phelan. Feeling betterstill has back pain but able to get up and around better. Sitting down only is where he has the most pain. Overall much improved. Medical Staff Director input appreciated. Vitals noted, in general he is awake and alert pleasant no distress. He is able to get out of bed slowly and steadily without a whole lot of visible pain, he is able to walk without much visible pain. Sitting back down in bed he does stall out and seems to wince a little bit with pain. Osteopathic/musculoskeleta lhsusan is able to roll on his side well, showing that his right-sided pelvic musculature in the region of gluteus minimus is high tone, tender, decreased range of motioninhibitory pressure/ligamentous articular strainimproved. Tissue texture improved and patient tolerated well. Acute severe intractable back painnow tractable. Appears to related to lumbar disc herniation as well as biomechanical. Lumbar disc diseasewhile quite severe on imaging, fortunately his pain is improved and at this point time it does not appear urgent surgery is necessary. Greatly appreciate orthopedics input. Taper steroids, continue pain control with Tylenol/oxycodone/as needed NSAIDs. PT eval and treat, decompression therapy if able to be arranged. Biomechanical back pain/pelvic somatic dysfunctionnow that he is able to move more, this was able to be localized predominantly to pelvic stabilizer muscles in the region of gluteus minimusOMT as above. Continue baclofen and topical diclofenac to this region. Stable for home, close outpatient follow-up. Resident Activity Tracking Resident Involvement: Resident Care Provided Care Provided: Adult Hospital Medicine
--- NOTE | 2021-03-17 18:20 | Billing Data ---
Date of Service March 17, 2021 Coding Level of Care Code D/C Day Management <30 mins
--- NOTE | 2021-03-17 18:20 | Hospitalist Progress Note ---
Date of Service March 17, 2021 Assessment & Plan Admission and Anticipated Discharge Date Admission Date: March 16, 2021 Results & Data Results & Data ([facility]) Vital Signs (Past 12 Hours) Vital Signs Temp Pulse Resp BP BP Pulse Ox 03/17/21 17:48 98.2 F 83 18 143/99 H 98 03/17/21 16:44 83 143/99 H 03/17/21 15:13 98.2 F 90 18 203/122 H 98 03/17/21 07:15 97.9 F 67 16 146/92 H 100 PG Care Time/CCT Total # of Minutes Spent Total Time Spent with Patient: Total time spent is greater than 50% in coordination of care (as documented) at patient's floor/unit and/or counseling patient: Coding Level of Care Code None CPT Codes Musculoskeletal - Musculoskeletal: 6[address] Jacek Tr 1-2 Body regions ([id number])
--- NOTE | 2021-03-17 18:21 | Hospitalist Progress Note ---
Date of Service March 16, 2021 Assessment & Plan Admission and Anticipated Discharge Date Admission Date: March 16, 2021 Results & Data Results & Data ([facility]) Vital Signs (Past 12 Hours) Vital Signs Temp Pulse Resp BP BP Pulse Ox 03/17/21 17:48 98.2 F 83 18 143/99 H 98 03/17/21 16:44 83 143/99 H 03/17/21 15:13 98.2 F 90 18 203/122 H 98 03/17/21 07:15 97.9 F 67 16 146/92 H 100 PG Care Time/CCT Total # of Minutes Spent Total Time Spent with Patient: Total time spent is greater than 50% in coordination of care (as documented) at patient's floor/unit and/or counseling patient: Coding Level of Care Code None CPT Codes Musculoskeletal - Musculoskeletal: 21695 Osteo Jacek Tr 1-2 Body regions ([id number])
== END 2021-03-17 18:34 | disposition home or self-care (01) | DRG 552 ==
LOC: ED 11:59 → 3E 14:37

== ENCOUNTER 2024-09-16 20:01 | Observation (INO) ==
--- NOTE | 2024-09-16 20:45 | Emergency Department Note ---
Impression & Plan Hypertension, Neck pain, Tachycardia, Failure of outpatient treatment ED Provider Note NAME: DEMI ROMANO AGE: 44 SEX: M : 1980 ARRIVES VIA: Walk-In INFORMANT: [Patient] ED PROVIDER(S): [Piyush Pearson MD] CHIEF COMPLAINT: Hypertension HISTORY OF PRESENT ILLNESS: The patient is a 44-year-old male with a history of hypertension. He is on amlodipine and Coreg. The patient states that he has issues with his blood pressure when he is in pain. He has had previous neck surgery and, he states, there is a screw from the surgery that causes pain. He has seen a spinal surgeon to see if the surgery can be redone however, there is concern that things will be worse with a second surgery and thus, surgery has not been recommended. Patient has had issues obtaining pain medication. He has an appointment to see a pain specialist on the of this month, in just under 2 weeks. The patient did see a [facility] provider a few days ago after a visit to this ER. His blood pressure was controlled at that time and he was told to continue his current BP meds. He was not prescribed pain medications. The patient has not had any Percocet or oxycodone for 2 days. He has felt palpitations, his blood pressure was quite high, he presents for evaluation. Patient is not nauseated, there has been no vomiting. He does not have chest pain. PMHx/PSHx/Social Hx: See Below PHYSICAL EXAM: GENERAL: Patient is in no acute distress. HEENT: No acute trauma, normocephalic atraumatic, mucous membranes moist, no nasal congestion. NECK: No stridor, no adenopathy, no meningismus, trachea is midline. LUNGS: Clear to auscultation bilaterally, no wheeze, no rhonchi, breath sounds equal. HEART: Tachycardic, regular rhythm, no murmurs. ABDOMEN: Soft, nontender, no peritonitis. EXTREMITIES: No cyanosis, full range of motion of all the joints without pain or difficulty. NEUROLOGIC: Oriented x 3, no acute motor or sensory deficits, no focal weakness. SKIN: No jaundice, no diaphoresis. DIFFERENTIAL DIAGNOSIS: Withdrawal, uncontrolled hypertension, medication noncompliance, dysrhythmia, among others. EMERGENCY DEPARTMENT PROCEDURES: MEDICAL DECISION MAKING: There is a very mild leukocytosis, this could be consistent with infection or just the stress of his current situation. There is a normal hemoglobin and platelet count. No renal failure or significant electrolyte abnormality. No concerning liver enzyme elevation. Patient appears to be in a euthyroid state. ECG showed a sinus tachycardia, no ischemia. Cardiac enzyme testing x 1 was not consistent with acute cardiac injury. On exam, the patient was not toxic or febrile. He was hypertensive and tachycardic. Patient was given IV labetalol, oral oxycodone, IV saline and oral Coreg. He had not taken his evening Coreg dose today. The patient's blood pressure was still quite high. He was given an additional dose of IV labetalol as well as another dose of oral oxycodone. The patient's blood pressure remains high and I do not think he is safe for discharge home. He has failed outpatient management. He will need to be hospitalized for appropriate blood pressure control. I spoke with the patient and case management, the on-call hospitalist was consulted. Prior/Outside records/notes reviewed: Family practice note from 09/13/2024 describing his presentation and the plan outpatient. No narcotics were prescribed. ECG per my interpretation: Indication was hypertension. The ECG shows a sinus tachycardia with a rate of 114. There is some nonspecific ST change. There is no acute ST elevation, no PVCs. The QTc is 438. Continuous Cardiac Monitoring per my interpretation: An order was placed for continuous cardiac monitoring. The monitor shows a rate of 120 with sinus tachycardia. Imaging/x-ray results per my interpretation: Chronic Medical/Social conditions affecting care: Hypertension and chronic neck pain Care/Management discussed with: Case management, the on-call hospitalist. Level of care consideration(s): After review of the information above and other included data: --I believe the patient requires escalation of care to admission DISPOSITION: Admission Past Med/Surg History Problem List (Updated 09/16/24 @ 23:47 by Piyush Pearson MD) Failure of outpatient treatment (Acute) Tachycardia (Acute) Neck pain (Acute) Hypertension (Acute) Hypertension (Acute) Chronic neck pain (Acute) Lyme disease (Acute) Neck pain (Acute) Hypertension (Acute) Headache (Acute) Prediabetes Hyperlipemia Obesity (BMI 30-39.9) Tobacco abuse Fatigue Low libido Erectile dysfunction Hypogonadism in male Lumbar disc herniation with radiculopathy (Acute) Myofascial pain Lumbosacral spondylosis with radiculopathy Uncontrolled hypertension (Acute) Shoulder pain, right (Acute) Other fracture of fourth metacarpal bone, right hand, initialencounter for closed fracture (Acute) Hand contusion (Acute) Dental caries (Acute) Cervical strain, acute (Acute) Back pain (Acute) History of hand surgery History of fusion of cervical spine Cervical spinal cord compression STATES "SCREW STICKING INTO SPINAL CORD" Acromioclavicular separation, type 1 (Acute) Bicipital tendonitis of right shoulder (Acute) Lumbar radiculopathy, acute (Acute) Vertigo (Acute) Medical History Hypertension NO MEDS; ONLY W/ SEVERE PAIN Fall Hx of gastric ulcer Lower back pain Surgical History Status post epidural steroid injection S/P tonsillectomy and adenoidectomy Family History Other No pertinent family history Social History Smoking Status: Current every day smoker Tobacco Type: Cigarettes Age Started Using Tobacco: 16; packs per day: 1; Cigarettes Per Day: 10 a day; Second Hand Exposure: No; Do You Dip or Chew Tobacco: No; Hx Alcohol Use: No Hx Substance Use: No Preferred Language: Citizen Of [place] Communication Ability: Effective Trade [employer] Specialist Required: No Beliefs That Will Affect Care: None marital status details: Current Living Situation: Spouse and Family current occupational status: employed Feels Safe at Home: Yes Assistive Devices: Cane Allergies Allergies Allergy/AdvReac Type Severity Reaction Status Date / Time NSAIDS (Non-Steroidal AdvReac Severe PERITONEAL Verified 09/16/24 22:26 Anti-Inflamma PERFORATION ISSUES lisinopril AdvReac Intermediate Cough Verified 09/16/24 22:26 steroids Allergy Severe Hives Uncoded 09/16/24 22:28 Home Meds Home Medications Medication Instructions Recorded Confirmed fluticasone propionate 50 2 spray intranasal DAILY PRN 05/04/24 09/16/24 mcg/actuation nasal ALLERGIES spray,suspension carvedilol 25 mg tablet 25 mg PO BID 07/15/24 09/16/24 diltiazem HCl 120 mg 120 mg PO DAILY 09/16/24 09/16/24 capsule,extended release 24 hr, controlled (DILT-XR) lidocaine 4 % topical patch 1 patch topical DAILY PRN Pain 09/16/24 09/16/24 sildenafil 100 mg tablet 100 mg PO DAILY PRN B/P ELEVATION 09/16/24 09/16/24 Previous Rx's Medication Instructions Recorded rosuvastatin 10 mg tablet 10 mg PO DAILY #90 tabs 06/06/24 amlodipine 5 mg tablet 5 mg PO DAILY #30 tabs 07/15/24 doxycycline monohydrate 100 mg 100 mg PO BID 21 days #42 caps 09/07/24 capsule Results & Data (ED) Vital Signs Vital Signs - 24 hr 09/16/24 20:06 09/16/24 20:16 09/16/24 20:27 Temperature 36.8 C Temperature Source Temporal Artery Scan Pulse Rate 127 H 124 H Pulse Rate [Apical] Pulse Rate from SpO2 Sensor Respiratory Rate 20 Respiratory Effort / Characteristics Non-Labored Spontaneous Respiratory Depth Normal Blood Pressure 190/144 H Blood Pressure [Right Arm] Blood Pressure Mean 159 Blood Pressure Mean [Right Arm] Blood Pressure Position [Right Arm] Pulse Oximetry 97 Oxygen Delivery Method Room Air Room Air Sepsis Recent Fever Within 48 Hours No Sepsis New/Unexplained Change in Mental Status No Sepsis Action Taken by Nursing No Action Required 09/16/24 21:30 09/16/24 21:33 09/16/24 22:01 Temperature Temperature Source Pulse Rate 117 H 113 H Pulse Rate [Apical] 97 H Pulse Rate from SpO2 Sensor 115 H Respiratory Rate 20 18 Respiratory Effort / Characteristics Respiratory Depth Blood Pressure 146/112 H 146/112 H Blood Pressure [Right Arm] 163/124 H Blood Pressure Mean 123 Blood Pressure Mean [Right Arm] 137 Blood Pressure Position [Right Arm] Semi-fowlers Pulse Oximetry 96 98 Oxygen Delivery Method Room Air Sepsis Recent Fever Within 48 Hours Sepsis New/Unexplained Change in Mental Status Sepsis Action Taken by Nursing 09/16/24 22:06 09/16/24 22:20 09/16/24 22:51 Temperature Temperature Source Pulse Rate 99 H 98 H 106 H Pulse Rate [Apical] Pulse Rate from SpO2 Sensor 98 H 106 H Respiratory Rate 16 21 Respiratory Effort / Characteristics Respiratory Depth Blood Pressure 163/124 H 163/124 H 175/118 H Blood Pressure [Right Arm] Blood Pressure Mean 137 137 Blood Pressure Mean [Right Arm] Blood Pressure Position [Right Arm] Pulse Oximetry 98 98 Oxygen Delivery Method Sepsis Recent Fever Within 48 Hours Sepsis New/Unexplained Change in Mental Status Sepsis Action Taken by Nursing 09/16/24 23:00 Temperature Temperature Source Pulse Rate 101 H Pulse Rate [Apical] Pulse Rate from SpO2 Sensor 102 H Respiratory Rate 22 Respiratory Effort / Characteristics Respiratory Depth Blood Pressure 165/124 H Blood Pressure [Right Arm] Blood Pressure Mean 137 Blood Pressure Mean [Right Arm] Blood Pressure Position [Right Arm] Pulse Oximetry 97 Oxygen Delivery Method Sepsis Recent Fever Within 48 Hours Sepsis New/Unexplained Change in Mental Status Sepsis Action Taken by [facility] Medications Current Medication List: was personally reviewed by me Laboratory Data Attestation: I reviewed the patient's lab results. 09/16/24 20:29 09/16/24 20:29 Lab Results 09/16/24 Range/Units 20:29 WBC 11.61 H (4.8-10.8) K/ul RBC 4.96 (4.70-6.10) M/uL Hgb 15.2 (14.0-18.0) g/dl Hct 43.4 (42.0-52.0) % MCV 87.5 (80.0-100.0) fL MCH 30.6 (25.0-34.0) pg MCHC 35.0 (32.0-36.0) g/dL RDW Std Deviation 41.9 (36.4-46.3) fL RDW Coeff of Penny 13.1 (11.5-14.5) % Plt Count 257 (130-400) K/uL MPV 10.7 (9.4-12.4) fL Immature Gran % (Auto) 0.5 % Neut % (Auto) 56.0 % Lymph % (Auto) 32.8 % [place] % (Auto) 7.4 % Eos % (Auto) 2.5 % Baso % (Auto) 0.8 % Neut # (Auto) 6.50 (1.40-6.50) K/uL Lymph # (Auto) 3.81 H (1.20-3.40) K/uL [place] # (Auto) 0.86 H (0.11-0.59) K/uL Eos # (Auto) 0.29 (0.00-0.50) K/uL Baso # (Auto) 0.09 (0.00-0.20) K/uL Immature Gran # (Auto) 0.06 (0.01-0.20) K/uL Sodium 138 (136-145) mmol/L Potassium 3.6 (3.5-5.1) mmol/L Chloride 106 (98-107) mmol/L Carbon Dioxide 24 (21-32) mmol/L Anion Gap 8 (3-11) BUN 11 (6-23) mg/dl Creatinine 1.05 (0.6-1.4) mg/dl Est Cr Clr Drug Dosing 124.1 ml/min eGFR 90.32 BUN/Creatinine Ratio 10.5 (10-20) Glucose 112 H (70-99(Fasting)) mg/dl Calcium 9.2 (8.6-10.3) mg/dl Magnesium 2.0 (1.7-2.4) mg/dl Total Bilirubin 0.6 (0.2-1.0) mg/dl AST 23 (13-39) U/L ALT 31 (7-52) U/L Alkaline Phosphatase 82 (34-104) U/L Troponin I High Sens < 2.3 (0-20) pg/ml Total Protein 7.1 (6.0-8.3) gm/dl Albumin 4.7 (3.4-5.0) gm/dl Globulin 2.4 L (2.5-4.0) gm/dl Albumin/Globulin Ratio 2.0 (0.9-2) TSH 2.075 (0.300-4.500) uIu/ml Administered Medications Discontinued Medications Carvedilol (Carvedilol 25 Mg Tab) 25 mg PO NOW ONE Stop: 09/16/24 21:37 Last Admin: 09/16/24 22:22 Dose: 25 mg Documented By: JAJAD Sodium Chloride (Nss) 500 mls @ 999 mls/hr IV .Q31M ONE Stop: 09/16/24 21:09 Last Infusion: 09/16/24 22:21 Dose: Infused Documented By: Admin: 09/16/24 21:34 Dose: 999 mls/hr Documented By: IDD Labetalol HCl (Labetalol Hcl Iv 5 Mg/Ml 20ml) 10 mg IV NOW STA Stop: 09/16/24 20:40 Last Admin: 09/16/24 21:33 Dose: 10 mg Documented By: IDD Oxycodone HCl (Oxycodone Hcl Ir 5 Mg Tab (Immediate Release)) 5 mg PO NOW STA Stop: 09/16/24 20:40 Last Admin: 09/16/24 21:32 Dose: 5 mg Documented By: IDD Oxycodone HCl (Oxycodone Hcl Ir 5 Mg Tab (Immediate Release)) 5 mg PO NOW STA Stop: 09/16/24 22:59 Last Admin: 09/16/24 23:02 Dose: 5 mg Documented By: DEBRA Discharge Plan Visit Data Chief Complaint: Hypertension Stated Complaint: NECK PAIN, HIGH BP, RACING HEART ED Provider: Piyush Pearson Discharge Problem: Hypertension, Neck pain, Tachycardia, Failure of outpatient treatment Patient Disposition: Admitted As Inpatient Condition: Fair Forms Stand Alone Forms: [facility] Prescriptions Prescriptions: No Action fluticasone propionate 50 mcg/actuation spray,suspension 2 spray intranasal DAILY PRN (Reason: ALLERGIES) rosuvastatin 10 mg tablet 10 mg PO DAILY Qty: 90 3RF Rx Instructions: Take one tablet by mouth once a day. doxycycline monohydrate 100 mg capsule 100 mg PO BID 21 Days Qty: 42 0RF Rx Instructions: BEGIN 09/07/24 X 21DAYS carvedilol 25 mg tablet 25 mg PO BID amlodipine 5 mg tablet 5 mg PO DAILY Qty: 30 0RF lidocaine 4 % Adhesive Patch,Medicated 1 patch TOPICAL DAILY PRN (Reason: Pain) sildenafil 100 mg tablet 100 mg PO DAILY PRN (Reason: B/P ELEVATION) Rx Instructions: Administer 30 minutes to 4 hours before activity. diltiazem HCl [DILT-XR] 120 mg capsule,ext.rel 24h degradable 120 mg PO DAILY Referrals Referrals: PCP,NO [Primary Care Provider] - Discharge Problem: Hypertension Qualifiers: Hypertension type: unspecified Qualified Code(s): I10 - Essential (primary) hypertension
[2024-09-16 21:11] LABS: Alanine Aminotransferase 31 U/L (7-52); Albumin Level 4.7 gm/dl (3.4-5.0); Alkaline Phosphatase 82 U/L (34-104); Anion Gap 8 (3-11); Aspartate Aminotransferase 23 U/L (13-39); BUN Creatinine Ratio 10.5 (10-20); Bilirubin,Total 0.6 mg/dl (0.2-1.0); Blood Urea Nitrogen 11 mg/dl (6-23); Calcium 9.2 mg/dl (8.6-10.3); Carbon Dioxide 24 mmol/L (21-32); Chloride 106 mmol/L (98-107); Creatinine Clr Calc Pharmacy 124.1 ml/min; Globulin 2.4 gm/dl (2.5-4.0); Glucose 112 mg/dl (70-99(Fasting)); Potassium 3.6 mmol/L (3.5-5.1); Sodium 138 mmol/L (136-145); Total Protein 7.1 gm/dl (6.0-8.3)
[2024-09-16 21:18] LABS: Troponin I High Sensitivity < 2.3 pg/ml (0-20)
[2024-09-16 21:22] LABS: Basophils # (auto) 0.09 K/uL (0.00-0.20); Basophils % (auto) 0.8 %; Eosinophils # (auto) 0.29 K/uL (0.00-0.50); Eosinophils % (auto) 2.5 %; Hematocrit (blood only) 43.4 % (42.0-52.0); Hemoglobin 15.2 g/dl (14.0-18.0); Immature Granulocytes # (auto) 0.06 K/uL (0.01-0.20); Immature Granulocytes % (auto) 0.5 %; Lymphocytes # (auto) 3.81 K/uL (1.20-3.40); Lymphocytes % (auto) 32.8 %; Mean Corpuscular Hemoglobin 30.6 pg (25.0-34.0); Mean Corpuscular Volume 87.5 fL (80.0-100.0); Mean Platelet Volume 10.7 fL (9.4-12.4); Monocytes # (auto) 0.86 K/uL (0.11-0.59); Monocytes % (auto) 7.4 %; Platelet Count 257 K/uL (130-400); RDW Coefficient of Variation 13.1 % (11.5-14.5); RDW Standard Deviation 41.9 fL (36.4-46.3); Red Blood Count 4.96 M/uL (4.70-6.10); White Blood Count 11.61 K/ul (4.8-10.8)
[2024-09-16 21:27] LABS: Thyroid Stimulating Hormone 2.075 uIu/ml (0.300-4.500)
[2024-09-16] MEDS: oxyCODONE HCL IR 5 MG TAB (IMMEDIATE RELEASE) PO STA ×2 (21:32→23:02)
[2024-09-16] MEDS: LABETALOL HCL IV 5 MG/ML 20ML IV STA (21:33)
[2024-09-16] MEDS: SODIUM CHLORIDE 0.9% 500 ML IV ONE (21:34)
[2024-09-16] MEDS: carvediloL 25 MG TAB PO ONE (22:22)
[2024-09-17] MEDS: LABETALOL HCL IV 5 MG/ML 20ML IV STA (00:11)
[2024-09-17] MEDS ORDERED: dexAMETHasone 6 MG in SYRINGE 0 ML IV ONE (00:43)
[2024-09-17] MEDS: DEXAMETHASONE SOD INJ 4 MG/ML VIAL IV ONE (00:57)
[2024-09-17] MEDS: HYDROmorphone INJ 0.5 MG/0.5 ML SYR IV STA (00:57)
[2024-09-17] MEDS: POTASSIUM CHLORIDE CRTAB 20 MEQ TABCR PO STA (00:57)
--- NOTE | 2024-09-17 01:10 | History & Physical Report ---
Date of Service September 17, 2024 Assessment & Plan (1) Failure of outpatient treatment: (2) Malignant hypertension: (3) Chronic neck pain: (4) Cervical spinal cord compression: (5) Lyme disease: Plan The patient is a 44-year-old male with past medical history including failure of outpatient treatment, hypertension, failed neck surgery pain, hyperlipidemia, tobacco abuse, caffeine use, hypogonadism in male, history of cervical spine decompression and fusion in 2018 by 's after. He has been seen by multiple pain management physicians and spinal surgeons. He has been on multiple treatment regimens for oral and IV pain medications. He has been on multiple oral medications for blood pressure control. His blood pressure seems to drop significantly once his pain is controlled, and has been difficult to manage without becoming hypotensive during non pain moments. He was recently diagnosed with Lyme disease, and is also on doxycycline at this time. #Uncontrolled neck pain/history of failed neck surgery syndrome- Patient has received Percocet with little improvement of pain in the ED Give dexamethasone 6 mg IV now, and then Dilaudid 0.25 mg IV now. Further adjustment in dosage as he responds At previous visit in the ED in 09/07/[address] scan of head, cervical spine and CTA head and neck performed Reportedly has an issue with one of the screws in his C-spine, however, this will be left to pain management and spinal surgery to address There were no acute findings on CT that warranted acute surgical intervention as noted done He has been on multiple medications including Percocet, Flexeril, baclofen, gabapentin. He reports having a new appointment with pain management at [place] on September 28 Depending upon how his symptoms go this evening, may benefit from a consult to pain management at [facility] sooner He has been seen orthopedic spine surgeon associated with [place] recently as well After ministration of dexamethasone 6 mg IV and Dilaudid 0.25 mg IV, patient had significantly improved symptoms and blood pressure improved 142/107 with heart rate [address] on dexamethasone 6 mg IV every morning, and Dilaudid 0.25 mg IV every 3 hours as needed moderate to severe pain If blood pressure continues to improve with above, will need to be placed on a suitable oral medication for pain control. Will need to review [facility] records to determine what combination of pain medications and blood pressure medications can be used to control pain and control blood pressure without making him become hypotensive #Uncontrolled hypertension- Continue carvedilol 25 mg p.o. twice daily, diltiazem XR 120 mg twice daily and amlodipine 5 mg every morning Patient reports that his blood pressure dropped significantly once his pain is controlled, will therefore hold on direct further treatment at this point He did get labetalol 5 mg IV doses x 2 from the ED without significant improvement in blood pressure Further management of blood pressure once we see what happens with his pain control He has been followed by cardiology Dr. Benito in the past, and did have an echocardiogram done a few years ago which with reportedly was normal. Admit to monitored bed his medication list will be reviewed, but he has 3 bags of pills, and has been on multiple medications in the past The way to control his blood pressure appears to be controlled his pain #Hyperlipidemia- Continue rosuvastatin History of Present Illness Chief Complaint: The patient presents to the emergency department with a history of significantly elevated blood pressure, becomes unresponsive when he has uncontrolled severe neck pain associated with previous cervical spine surgery. Primary Care Provider: NO PCP The patient is a 44-year-old male with past medical history including failure of outpatient treatment, hypertension, failed neck surgery pain, hyperlipidemia, tobacco abuse, caffeine use, hypogonadism in male, history of cervical spine decompression and fusion in 2018 by 's after. He has been seen by multiple pain management physicians and spinal surgeons. He has been on multiple treatment regimens for oral and IV pain medications. He has been on multiple oral medications for blood pressure control. His blood pressure seems to drop significantly once his pain is controlled, and has been difficult to manage without becoming hypotensive during non pain moments. He was recently diagnosed with Lyme disease, and is also on doxycycline at this time. Allergies Allergy/AdvReac Type Severity Reaction Status Date / Time Corticosteroids Allergy Severe Hives Verified 09/17/24 00:47 (Glucocorticoids) NSAIDS (Non-Steroidal AdvReac Severe PERITONEAL Verified 09/16/24 22:26 Anti-Inflamma PERFORATION ISSUES lisinopril AdvReac Intermediate Cough Verified 09/16/24 22:26 Home Medications Medication Instructions Recorded Confirmed Type fluticasone propionate 50 2 spray intranasal DAILY PRN 05/04/24 09/16/24 History mcg/actuation nasal ALLERGIES spray,suspension rosuvastatin 10 mg tablet 10 mg PO DAILY #90 tabs 06/06/24 09/16/24 Rx amlodipine 5 mg tablet 5 mg PO DAILY #30 tabs 07/15/24 09/16/24 Rx carvedilol 25 mg tablet 25 mg PO BID 07/15/24 09/16/24 History doxycycline monohydrate 100 mg 100 mg PO BID 21 days #42 caps 09/07/24 09/16/24 Rx capsule diltiazem HCl 120 mg 120 mg PO DAILY 09/16/24 09/16/24 History capsule,extended release 24 hr, controlled (DILT-XR) lidocaine 4 % topical patch 1 patch topical DAILY PRN Pain 09/16/24 09/16/24 History sildenafil 100 mg tablet 100 mg PO DAILY PRN B/P ELEVATION 09/16/24 09/16/24 History Past Med/Surg History Problem List (Updated 09/17/24 @ 01:01 by Alber Lomeli MD) Malignant hypertension Failure of outpatient treatment (Acute) Tachycardia (Acute) Neck pain (Acute) Hypertension (Acute) Hypertension (Acute) Chronic neck pain (Acute) Lyme disease (Acute) Neck pain (Acute) Hypertension (Acute) Headache (Acute) Prediabetes Hyperlipemia Obesity (BMI 30-39.9) Tobacco abuse Fatigue Low libido Erectile dysfunction Hypogonadism in male Lumbar disc herniation with radiculopathy (Acute) Myofascial pain Lumbosacral spondylosis with radiculopathy Uncontrolled hypertension (Acute) Shoulder pain, right (Acute) Other fracture of fourth metacarpal bone, right hand, initialencounter for closed fracture (Acute) Hand contusion (Acute) Dental caries (Acute) Cervical strain, acute (Acute) Back pain (Acute) History of hand surgery History of fusion of cervical spine Cervical spinal cord compression STATES "SCREW STICKING INTO SPINAL CORD" Acromioclavicular separation, type 1 (Acute) Bicipital tendonitis of right shoulder (Acute) Lumbar radiculopathy, acute (Acute) Vertigo (Acute) Medical History Hypertension NO MEDS; ONLY W/ SEVERE PAIN Fall Hx of gastric ulcer Lower back pain Surgical History Status post epidural steroid injection S/P tonsillectomy and adenoidectomy Family History Other No pertinent family history Social History Smoking Status: Current every day smoker Tobacco Type: Cigarettes Age Started Using Tobacco: 16; packs per day: 1; Cigarettes Per Day: 10 a day; Second Hand Exposure: No; Do You Dip or Chew Tobacco: No; Hx Alcohol Use: No Hx Substance Use: No Preferred Language: Guyanese Communication Ability: Effective Journalists And Other Writers Required: No Beliefs That Will Affect Care: None marital status details: Current Living Situation: Spouse and Family current occupational status: employed Feels Safe at Home: Yes Assistive Devices: Cane Review of Systems Review of Systems: The patient denies chest pain, palpitations, shortness of breath, dyspnea on exertion, cough, lower extremity swelling, sore throat, fevers, chills, sweats, weight change, fatigue, nausea, vomiting, diarrhea , constipation, abdominal pain, pelvic pain, blood in urine or stool, dysuria, urinary frequency or urgency, lightheadedness, dizziness, headache, memory loss, loss of consciousness, rash, abnormal bruising or bleeding, imbalance, focal or generalized weakness, numbness or tingling in arms or legs, generalized arthralgias or myalgias, back pain, or night sweats. The review of systems is otherwise negative other than for that already noted above, and at least 10 systems have been reviewed. Physical Exam Physical Exam: The patient is awake, alert and oriented 3, well developed and well nourished, normocephalic and atraumatic, lying in bed and in no acute distress. HEENT--PERRL, EOMI, mucous membranes and oropharynx Normal Neck--supple. No JVD. No bruits. Thyroid normal, trachea midline, no adenopathy. Heart--normal S1 and S2. No murmurs, rubs or gallops. Lungs--clear bilaterally, no respiratory distress, no accessory muscle use. Abdomen--normal bowel sounds and soft. Nontender. Nondistended, no hernias or masses, no organomegaly. Extremities--no cyanosis or clubbing. No edema. There are good distal pulses b/l. Dermatologic--normal skin turgor, normal color, no abnormal lymph nodes, no rash. Neurologic--cranial nerves II through XII grossly intact. Rheumatologic--normal range of motion. Psychiatric--normal affect. Results & Data Results & Data Vital Signs (Past 12 Hours) Vital Signs Temp Pulse Pulse Resp BP BP Pulse Ox 09/17/24 00:36 84 170/121 H 09/17/24 00:22 83 09/17/24 00:11 88 168/124 H 09/16/24 23:00 36.6 C 104 H 20 165/124 H 96 09/16/24 23:00 101 H 22 165/124 H 97 09/16/24 22:51 106 H 21 175/118 H 98 09/16/24 22:20 98 H 163/124 H 09/16/24 22:06 99 H 16 163/124 H 98 09/16/24 22:01 97 H 18 163/124 H 98 09/16/24 21:33 113 H 146/112 H 09/16/24 21:30 117 H 20 146/112 H 96 09/16/24 20:27 09/16/24 20:16 124 H 09/16/24 20:06 36.8 C 127 H 20 190/144 H 97 O2 Del Method 09/17/24 00:36 09/17/24 00:22 09/17/24 00:11 09/16/24 23:00 Room Air 09/16/24 23:00 09/16/24 22:51 09/16/24 22:20 09/16/24 22:06 09/16/24 22:01 Room Air 09/16/24 21:33 09/16/24 21:30 09/16/24 20:27 Room Air 09/16/24 20:16 09/16/24 20:06 Room Air Laboratory Results Laboratory Results WBC 11.61 K/ul (4.8-10.8) H 09/16/24 20: RBC 4.96 M/uL (4.70-6.10) 09/16/24 20:29 Hgb 15.2 g/dl (14.0-18.0) 09/16/24 20:29 Hct 43.4 % (42.0-52.0) 09/16/24 20:29 MCV 87.5 fL (80.0-100.0) 09/16/24 20: MCH 30.6 pg (25.0-34.0) 09/16/24: MCHC 35.0 g/dL (32.0-36.0) 09/16/24 RDW Std Deviation 41.9 fL (36.4-46.3) 09/16/24 RDW Coeff of Penny 13.1 % (11.5-14.5) 09/16/24 Plt Count 257 K/uL (130-400) 09/16/24 MPV 10.7 fL (9.4-12.4) 09/16/24: Immature Gran % (Auto) 0.5 % 09/16/24: Neut % (Auto) 56.0 % 09/16/24: Lymph % (Auto) 32.8 % 09/16/24 [place] % (Auto) 7.4 % 09/16/24: Eos % (Auto) 2.5 % 09/16/24: Baso % (Auto) 0.8 % 09/16/24: Neut # (Auto) 6.50 K/uL (1.40-6.50) 09/16/24: Lymph # (Auto) 3.81 K/uL (1.20-3.40) H 09/16/24: [place]hin # (Auto) 0.86 K/uL (0.11-0.59) H 09/16/24: Eos # (Auto) 0.29 K/uL (0.00-0.50) 09/16/24 Baso # (Auto) 0.09 K/uL (0.00-0.20) 09/16/24 Immature Gran # (Auto) 0.06 K/uL (0.01-0.20) 09/16/24: Sodium 138 mmol/L (136-145) 09/16/24 Potassium 3.6 mmol/L (3.5-5.1) 09/16/24 Chloride 106 mmol/L (98-107) 09/16/24 Carbon Dioxide 24 mmol/L (21-32) 09/16/24 Anion Gap 8 (3-11) 09/16/24: BUN 11 mg/dl (6-23) 09/16/24 20: Creatinine 1.05 mg/dl (0.6-1.4) 09/16/24: Est Cr Clr Drug Dosing 124.1 ml/min 09/16/24 20: eGFR 90.32 09/16/24 20: BUN/Creatinine Ratio 10.5 (10-20) 09/16/24 20: Glucose 112 mg/dl (70-99(Fasting)) H 09/16/24 20: Calcium 9.2 mg/dl (8.6-10.3) 09/16/24 20: Magnesium 2.0 mg/dl (1.7-2.4) 09/16/24: Total Bilirubin 0.6 mg/dl (0.2-1.0) 09/16/24 20: AST 23 U/L (13-39) 09/16/24: ALT 31 U/L (7-52) 09/16/24 20: Alkaline Phosphatase 82 U/L (34-104) 09/16/24 20: Troponin I High Sens < 2.3 pg/ml (0-20) 09/16/24 20: Total Protein 7.1 gm/dl (6.0-8.3) 09/16/24: Albumin 4.7 gm/dl (3.4-5.0) 09/16/24: Globulin 2.4 gm/dl (2.5-4.0) L 09/16/24: Albumin/Globulin Ratio 2.0 (0.9-2) 09/16/24 20: TSH 2.075 uIu/ml (0.300-4.500) 09/16/24 20: Code Status & VTE Plan Code Status full code VTE Prophylaxis Plan VTE Prophylaxis will be ordered: Yes PG Care Time/CCT Total # of Minutes Spent Total Time Spent with Patient: Total time spent is greater than 50% in coordination of care (as documented) at patient's floor/unit and/or counseling patient: Coding Level of Care Code 29630 INT INP/OBS CARE 3/75MIN Diagnoses Failure of outpatient treatment Z78.9 Malignant hypertension I10 Chronic neck pain M54.2; G89.29 Cervical spinal cord compression G95.20 Lyme disease A69.20
[2024-09-17] MEDS: HYDROmorphone INJ 0.5 MG/0.5 ML SYR IV PRN (03:11)
[2024-09-17] MEDS ORDERED: ACETAMINOPHEN 1000 MG/100 ML IV IV PRN (03:26)
[2024-09-17] MEDS ORDERED: FLUTICASONE PROPIONATE NA SPR 16 GM BTL NAE PRN (03:26)
[2024-09-17] MEDS ORDERED: ONDANSETRON INJ 2 MG/ML 2 ML VIAL IV PRN (03:26)
[2024-09-17 03:55] VITALS: TEMP 97.7
[2024-09-17 04:33] LABS: Albumin Level 4.6 gm/dl (3.4-5.0); BUN Creatinine Ratio 12.5 (10-20); Creatinine Clr Calc Pharmacy 135.8 ml/min; Potassium 4.3 mmol/L (3.5-5.1)
[2024-09-17 07:02] VITALS: O2SAT 95
--- NOTE | 2024-09-17 07:03 | Hospitalist Progress Note ---
Date of Service September 17, 2024 Assessment & Plan (1) Failure of outpatient treatment: (2) Malignant hypertension: (3) Chronic neck pain: (4) Cervical spinal cord compression: (5) Lyme disease: Plan The patient is a 44-year-old male with past medical history including failure of outpatient treatment, hypertension, failed neck surgery pain, hyperlipidemia, tobacco abuse, caffeine use, hypogonadism in male, history of cervical spine decompression and fusion in 2018 by 's after. He has been seen by multiple pain management physicians and spinal surgeons. He has been on multiple treatment regimens for oral and IV pain medications. He has been on multiple oral medications for blood pressure control. His blood pressure seems to drop significantly once his pain is controlled, and has been difficult to manage without becoming hypotensive during non pain moments. He was recently diagnosed with Lyme disease, and is also on doxycycline at this time. #Uncontrolled neck pain/history of failed neck surgery syndrome- Patient has received Percocet with little improvement of pain in the ED Give dexamethasone 6 mg IV now, and then Dilaudid 0.25 mg IV now. Further adjustment in dosage as he responds At previous visit in the ED in 09/07/[address] scan of head, cervical spine and CTA head and neck performed Reportedly has an issue with one of the screws in his C-spine, however, this will be left to pain management and spinal surgery to address There were no acute findings on CT that warranted acute surgical intervention as noted done He has been on multiple medications including Percocet, Flexeril, baclofen, gabapentin. He reports having a new appointment with pain management at [place] on September 28 Depending upon how his symptoms go this evening, may benefit from a consult to pain management at [facility] sooner He has been seen orthopedic spine surgeon associated with [place] recently as well After ministration of dexamethasone 6 mg IV and Dilaudid 0.25 mg IV, patient had significantly improved symptoms and blood pressure improved 142/107 with heart rate [address] on dexamethasone 6 mg IV every morning, and Dilaudid 0.25 mg IV every 3 hours as needed moderate to severe pain If blood pressure continues to improve with above, will need to be placed on a suitable oral medication for pain control. Will need to review [facility] records to determine what combination of pain medications and blood pressure medications can be used to control pain and control blood pressure without making him become hypotensive #Uncontrolled hypertension- Continue carvedilol 25 mg p.o. twice daily, diltiazem XR 120 mg twice daily and amlodipine 5 mg every morning Patient reports that his blood pressure dropped significantly once his pain is controlled, will therefore hold on direct further treatment at this point He did get labetalol 5 mg IV doses x 2 from the ED without significant improvement in blood pressure Further management of blood pressure once we see what happens with his pain control He has been followed by cardiology Dr. Benito in the past, and did have an echocardiogram done a few years ago which with reportedly was normal. Admit to monitored bed his medication list will be reviewed, but he has 3 bags of pills, and has been on multiple medications in the past The way to control his blood pressure appears to be controlled his pain #Hyperlipidemia- Continue rosuvastatin Admission and Anticipated Discharge Date Admission Date: September 17, 2024 Results & Data Results & Data Vital Signs (Past 12 Hours) Vital Signs Temp Pulse Pulse Resp BP BP Pulse Ox 09/17/24 05:30 86 22 146/103 H 95 09/17/24 04:30 75 21 129/80 95 09/17/24 04:00 76 20 146/107 H 97 09/17/24 03:55 36.5 C 77 18 149/65 H 97 09/17/24 03:30 79 17 149/95 H 95 09/17/24 03:26 36.5 C 80 18 149/95 H 97 09/17/24 03:26 09/17/24 02:30 80 21 133/106 H 97 09/17/24 02:00 36.6 C 82 16 142/107 H 97 09/17/24 01:18 83 18 157/116 H 97 09/17/24 00:36 84 170/121 H 09/17/24 00:22 83 09/17/24 00:11 88 168/124 H 09/16/24 23:40 36.6 C 84 18 165/119 H 98 09/16/24 23:00 36.6 C 104 H 20 165/124 H 96 09/16/24 23:00 101 H 22 165/124 H 97 09/16/24 22:51 106 H 21 175/118 H 98 09/16/24 22:20 98 H 163/124 H 09/16/24 22:06 99 H 16 163/124 H 98 09/16/24 22:01 97 H 18 163/124 H 98 09/16/24 21:33 113 H 146/112 H 09/16/24 21:30 117 H 20 146/112 H 96 09/16/24 20:27 09/16/24 20:16 124 H 09/16/24 20:06 36.8 C 127 H 20 190/144 H 97 Pulse Ox O2 Del Method O2 Del Method 09/17/24 05:30 Room Air 09/17/24 04:30 Room Air 09/17/24 04:00 Room Air 09/17/24 03:55 Room Air 09/17/24 03:30 Room Air 09/17/24 03:26 Room Air 09/17/24 03:26 97 Room Air 09/17/24 02:30 Room Air 09/17/24 02:00 Room Air 09/17/24 01:18 Room Air 09/17/24 00:36 09/17/24 00:22 09/17/24 00:11 09/16/24 23:40 Room Air 09/16/24 23:00 Room Air 09/16/24 23:00 09/16/24 22:51 09/16/24 22:20 09/16/24 22:06 09/16/24 22:01 Room Air 09/16/24 21:33 09/16/24 21:30 09/16/24 20:27 Room Air 09/16/24 20:16 09/16/24 20:06 Room Air
[2024-09-17] MEDS: DOXYCYCLINE HYCLATE 100 MG CAP PO SCH (08:33)
[2024-09-17] MEDS: ROSUVASTATIN CALCIUM 10 MG TAB PO SCH (08:33)
[2024-09-17] MEDS: carvediloL 25 MG TAB PO SCH (08:33)
[2024-09-17] MEDS: dilTIAZem HCL 120 MG CAPCR PO SCH (08:33)
[2024-09-17] MEDS: amLODIPine BESYLATE 5 MG TAB PO SCH (08:33)
[2024-09-17] MEDS: dexAMETHasone 6 MG in SYRINGE 0 ML IV SCH (08:34)
[2024-09-17 11:19] VITALS: BP 146/99; PULSE 81; RESP 20
--- NOTE | 2024-09-17 12:19 | XCELERA ---
[id number] [id number]
--- NOTE | 2024-09-17 12:29 | Discharge Summary ---
Date of Service September 17, 2024 Admission HPI Per Admitting Provider The patient is a 44-year-old male with past medical history including failure of outpatient treatment, hypertension, failed neck surgery pain, hyperlipidemia, tobacco abuse, caffeine use, hypogonadism in male, history of cervical spine decompression and fusion in 2018 by 's after. He has been seen by multiple pain management physicians and spinal surgeons. He has been on multiple treatment regimens for oral and IV pain medications. He has been on multiple oral medications for blood pressure control. His blood pressure seems to drop significantly once his pain is controlled, and has been difficult to manage without becoming hypotensive during non pain moments. He was recently diagnosed with Lyme disease, and is also on doxycycline at this time. Admission Exam Per Admitting Provider The patient is awake, alert and oriented 3, well developed and well nourished, normocephalic and atraumatic, lying in bed and in no acute distress. HEENT--PERRL, EOMI, mucous membranes and oropharynx Normal Neck--supple. No JVD. No bruits. Thyroid normal, trachea midline, no adenopathy. Heart--normal S1 and S2. No murmurs, rubs or gallops. Lungs--clear bilaterally, no respiratory distress, no accessory muscle use. Abdomen--normal bowel sounds and soft. Nontender. Nondistended, no hernias or masses, no organomegaly. Extremities--no cyanosis or clubbing. No edema. There are good distal pulses b/l. Dermatologic--normal skin turgor, normal color, no abnormal lymph nodes, no rash. Neurologic--cranial nerves II through XII grossly intact. Rheumatologic--normal range of motion. Psychiatric--normal affect Principal Diagnosis Cervalgia Discharge Exam Constitutional well developed and well nourished; no acute distress Eyes EOM intact bilaterally Neck normal visual inspection and trachea midline Respiratory no respiratory distress and no labored breathing Cardiovascular RRR, no murmur, no edema Gastrointestinal (Abdomen) Inspection/Auscultation: abdomen not distended Musculoskeletal Head/Neck/Chest: full ROM of neck Psychiatric A+Ox3, euthymic affect Discharge Data Allergies Allergy/AdvReac Type Severity Reaction Status Date / Time Corticosteroids Allergy Severe Hives Verified 09/17/24 00:47 (Glucocorticoids) NSAIDS (Non-Steroidal AdvReac Severe PERITONEAL Verified 09/16/24 22:26 Anti-Inflamma PERFORATION ISSUES lisinopril AdvReac Intermediate Cough Verified 09/16/24 22:26 Consultations 09/16/24 23:37 ED Decision to Admit Stat Hospital Course (1) Failure of outpatient treatment: (2) Malignant hypertension: (3) Chronic neck pain: (4) Cervical spinal cord compression: (5) Lyme disease: Plan The patient is a 44-year-old male with past medical history including failure of outpatient treatment, hypertension, failed neck surgery pain, hyperlipidemia, tobacco abuse, caffeine use, hypogonadism in male, history of cervical spine decompression and fusion in 2018. Observed in ED for pain management. #Uncontrolled neck pain/history of failed neck surgery syndrome: - On morning round, Pain controlled with Dexamethasone 6 mg IV and Dilaudid 0.25 mg IV. He wants to leave now. - Has tried multiple pain Meds like Percocet, Flexeril, baclofen, gabapentin in past that did not help him. - He reports having a new appointment with pain management at [facility] on September 28, 2024. - Blood pressure improved to 130s after effective pain Meds on DC; continue previous BP pills. - Discharging him on Oral Periocet and Medrol dose pack as per prescription. Tolerated IV steroid at hospital despite documented allergy, hence continuing on Medrol pack. - F/U with PCP after Pain management appointment. #Uncontrolled hypertension: -Continue carvedilol 25 mg p.o. twice daily, diltiazem XR 120 mg twice daily and amlodipine 5 mg every morning. -He did get labetalol 5 mg IV doses x 2 from the ED without significant improvement in blood pressure. - BP pretty much controlled after Pain control with IV Dilaudid. Hence discharging on Opiods for short duration before Pain management appointment. - Total Time Total Time Spent Total Time Spent (In Minutes): See attending's attestation. Discharge Plan Discharge Items Patient Disposition: Home - Self-Care Reason For Visit: UNCONTROLLED CERVICALGIA, MALIGNANT HTN Discharge Diagnosis: acute on chronic pain, elevated BP Condition on Discharge: Fair Activity: Resume your previous activity Non-emergency contact: Primary Care Provider and Pain Management Call non-emergency contact if: you have any medication questions, your symptoms worsen and your pain is not controlled Follow-up/Referrals: PCP,NO [Primary Care Provider] - Diet: Regular Addtl Attending Provider Instructions: You were admitted to the hospital for intractable neck pain and high blood pressure. You were treated with pain medications and medications to lower your blood pressure. A discharge summary will be sent to your primary care physician to ensure continuity of care. Please bring this discharge summary with you to your next office appointment so that your provider can review it at that time. Medications: Your medication list has been reviewed and reconciled upon discharge to ensure accuracy and continuity of care. An updated list of all your medications is included with your hospital discharge paperwork. Please review this list closely and make note of any changes to your medications. - You were prescribed oxycodone 5mg- acetaminophen 325mg to be used up to 4x per day for pain as needed. - You were also given steroids to decrease inflammation to help with your pain. Although you have a listed reaction to steroids in the past, you were given IV steroids while hospitalized without reaction and improvement in your pain. You should take 2 tablets of prednisone once per day for 4 days. Follow up appointments: - Make a follow up appointment with your PCP within the next week. It is very important that you follow up with them shortly after discharge from the hospital. - Keep all of your follow up appointments as already scheduled. If you cannot make an appointment, notify your provider. CONTACT YOUR PRIMARY CARE PROVIDER if you experience any of the following: - Difficulty following your treatment plan - Difficulty taking any of your medications CALL 911 OR GO TO THE EMERGENCY DEPARTMENT if you experience any of the fo llowing: - Sudden, severe abdominal pain or nausea/vomiting - Severe chest pain or chest pain that radiates to your jaw or arm - Sudden, severe shortness of breath or difficulty breathing Pending Studies at Discharge: No Stand-Alone Forms: My [facility] [employer], Smoking Cessation Medications and DC Order Prescriptions: New oxycodone-acetaminophen 5-325 mg tablet 1 tab PO QID PRN (Reason: pain) Qty: 20 0RF prednisone 20 mg tablet 40 mg PO DAILY 4 Days Qty: 8 0RF Continued fluticasone propionate 50 mcg/actuation spray,suspension 2 spray intranasal DAILY PRN (Reason: ALLERGIES) rosuvastatin 10 mg tablet 10 mg PO DAILY Qty: 90 3RF Rx Instructions: Take one tablet by mouth once a day. doxycycline monohydrate 100 mg capsule 100 mg PO BID 21 Days Qty: 42 0RF Rx Instructions: BEGIN 09/07/24 X 21DAYS carvedilol 25 mg tablet 25 mg PO BID amlodipine 5 mg tablet 5 mg PO DAILY Qty: 30 0RF lidocaine 4 % Adhesive Patch,Medicated 1 patch TOPICAL DAILY PRN (Reason: Pain) sildenafil 100 mg tablet 100 mg PO DAILY PRN (Reason: B/P ELEVATION) Rx Instructions: Administer 30 minutes to 4 hours before activity. diltiazem HCl [DILT-XR] 120 mg capsule,ext.rel 24h degradable 120 mg PO DAILY Discharge Orders: Discharge Order (Routine); Ordered 09/17/24 Ordered By: Yumiko Alonso Admission Data Admit Date/Time: 09/17/24 00:54 Attending Provider: Amelie Garcia Admit Provider: Alber Lomeli Primary Care Provider: PCP,MARCELLA Other Providers: Alber Lomeli Other Interventions: Discharge Summary Assessment (RN) Last Done: 09/17/24 12:29 Supervising Physician Co-Signing Physician Notes Attending Physician Supervision Note: I independently interviewed and examined the patient and verified the hensley history and physical, reviewed labs and image studies and agree with findings and care plan noted above. Acute worsening of chronic neck pain in setting of h/o cervical spine fusion - Pain improved with IV dilaudid and IV dexamethasone doses. Sent home on steroid taper and percocet. -Has been struggling with chronic pain management in outpatient setting. To follow up with pain management clinic as scheduled. -Encouraged regularly implementing non pharmacological techniques to prevent acute worsening of pain. HTN - Uncontrolled in ED. Improved after pain control.
--- NOTE | 2024-09-18 06:31 | Electrocardiogram Report ---
Test Reason : Blood Pressure : */* mmHG Vent. Rate : 114 BPM Atrial Rate : 114 BPM P-R Int : 146 ms QRS Dur : 90 ms QT Int : 318 ms P-R-T Axes : 37 52 -7 degrees QTcB Int : 438 ms Sinus tachycardia Otherwise normal ECG When compared with ECG of 12-Sep-2024 23:35, No significant change was found Confirmed by Marvin Pedro ([id number]) on 09/18/2024 6:30:36 AM Referred By: REFERRED SELF Confirmed By: Marvin Pedro
== END 2024-09-17 12:51 | disposition home or self-care (01) ==
LOC: ED 20:01 → EDINP 20:01 → SUATTDRO 09-17 00:54 → EDINP 09-17 03:26

== ENCOUNTER 2025-01-13 16:17 | Observation (INO) ==
[2025-01-13 16:28] VITALS: TEMP 97.7
[2025-01-13 16:56] LABS: Hematocrit (blood only) 47.3 % (42.0-52.0); Hemoglobin 15.9 g/dl (14.0-18.0); Mean Corpuscular Hemoglobin 29.2 pg (25.0-34.0); Mean Corpuscular Hgb Conc 33.6 g/dL (32.0-36.0); Mean Corpuscular Volume 86.8 fL (80.0-100.0); Mean Platelet Volume 10.2 fL (9.4-12.4); Platelet Count 351 K/uL (130-400); RDW Coefficient of Variation 13.2 % (11.5-14.5); Red Blood Count 5.45 M/uL (4.70-6.10); White Blood Count 15.92 K/ul (4.8-10.8)
[2025-01-13 17:20] LABS: Albumin Globulin Ratio 1.9 (0.9-2); Albumin Level 4.8 gm/dl (3.4-5.0); BUN Creatinine Ratio 7.1 (10-20); Bilirubin,Total 0.6 mg/dl (0.2-1.0); Calcium 9.6 mg/dl (8.6-10.3); Creatinine Clr Calc Pharmacy 115.1 ml/min; Globulin 2.5 gm/dl (2.5-4.0); Potassium 3.8 mmol/L (3.5-5.1); Total Protein 7.3 gm/dl (6.0-8.3)
[2025-01-13 17:21] LABS: Basophils % (auto) 0.6 %; Eosinophils # (auto) 0.26 K/uL (0.00-0.50); Eosinophils % (auto) 1.6 %; Immature Granulocytes # (auto) 0.07 K/uL (0.01-0.20); Immature Granulocytes % (auto) 0.4 %; Lymphocytes # (auto) 5.33 K/uL (1.20-3.40); Lymphocytes % (auto) 33.5 %; Monocytes # (auto) 0.78 K/uL (0.11-0.59); Monocytes % (auto) 4.9 %; Neutrophils # (auto) 9.38 K/uL (1.40-6.50); Polychromasia 1+
[2025-01-13 17:26] LABS: Troponin I High Sensitivity 3.6 pg/ml (0-20)
--- NOTE | 2025-01-13 17:28 | Emergency Department Note ---
Impression & Plan Acute neck pain, Hypertension, Chronic neck pain ED Provider Note NAME: DEMI ROMANO AGE: 44 SEX: M : 1980 ARRIVES VIA: Walk-In INFORMANT: Patient ED PROVIDER(S): Tyler Cano MD CHIEF COMPLAINT: Acute on chronic neck pain, hypertension, referred. PLAN: Disposition: Admit MEDICAL DECISION MAKING: The patient is a 44-year-old gentleman with past medical history of chronic neck pain with failed cervical surgeries who follows with the pain clinic, history of hypertension who presents emergency department via walk-in for evaluation of ongoing neck pain where he reports that he has blood pressure remains high and that typically this is due to his pain and requires IV narcotics to get his blood pressure under control. Patient reports his symptoms flared on Tuesday and he suspect maybe this was related to work as he works as an lead systems engineer for the [email or web address] and engages in physical activity related to this. He denies any urinary retention or loss of bowel control. He is moving his bowels normally. He was seen in his restroom prior yesterday and received a 2 mg dose of IV morphine. Patient reports pain continues. Of note, the patient did arrive to emergency department during time of high volume, acuity and prolonged emergency department waiting times. Critical pathways initiated from triage. On evaluation the patient is no acute distress, afebrile blood pressure in the 180s/120s and heart rate in the 110s and vital signs otherwise stable. He exhibits midline tenderness of the mid cervical spine without bony crepitus. He has normal strength in all extremities. Reflexes within normal limits. There is no clonus. L5 intact bilaterally. CXR negative for acute cardiopulmonary process per my personal preliminary review/interpretation. WBC 15.9 K with neutrophilia but no left shift, nonspecific. H/H and platelets within normal limits. Chemistry without metabolic acidosis. Electrolytes LFTs unremarkable. High styptic 23.6, within normal limits. Of note, the patient does express frustration regarding his impression that providers at times interpret his pain complaints as "seeking". We discussed it is understandable that he may experience frustration regarding the management of his pain in the setting of his condition however presenting on a regular basis for IV narcotics related to flares of pain is not in his best interest. With his best interests in mind we would provide him with anti-inflammatories such as dexamethasone as well as some muscle relaxers and provide him with oral analgesia to help with his symptoms in addition to IV medications to manage his elevated blood pressure. We recommended that he be admitted to the hospital to ensure stability of his pain and control of his blood pressure. He expressed openness to this. Case was discussed with NABEEL Bishop PAC, with NABEEL Calderon hospitalist who will evaluate the patient for admission. Further management per admitting team. Triage Nursing notes reviewed and agree them. Prior/external medical records reviewed Vital Signs: reviewed Differential diagnosis: Cervical strain, fracture, cervical disc disease, lymphadenitis, meningitis, tumor, arterial dissection, thyroiditis, parotitis, mastoiditis, neurologic, cardiovascular, as well as other pathologies. ER treatment provided: See below. Diagnostics interpreted by me: Cardiac Monitoring: An order for continuous cardiac monitoring was placed and demonstrated sinus tachycardia, 102 bpm, no ectopy. Laboratory studies: See below Imaging studies: See below Consultation(s): NABEEL Bishop PAC, with NABEEL Calderon hospitalist. HPI: Per MDM. ROS: See above HPI for pertinent positives & negatives. A total of 10 systems reviewed and were otherwise negative. VITALS:See Below PHYSICAL EXAMINATION: GENERAL: Awake, alert, in no distress, BMI 35.3. HENT: Normocephalic, atraumatic. Oropharynx with dry mucous membranes and otherwise unremarkable. EYES: Normal conjunctiva. Sclera non-icteric. NECK: Supple. No nuchal rigidity. FROM. No JVD. RESPIRATORY: Clear to auscultation. CARDIAC: Regular rate, normal rhythm. Extremities warm and well perfused. Pulses equal. ABDOMEN: Soft, non-distended. No tenderness to palpation. No rebound or guarding. No masses. MUSCULOSKELETAL: Chest examination reveals no tenderness. The back is symmetrical on inspection without obvious abnormality. There is no CVA tenderness to palpation. No joint edema. LOWER EXTREMITIES: Calves are equal size bilaterally and non-tender. No edema. No discoloration. NEURO: Normal sensorium. No sensory or motor deficits noted. 5/5 strength and SILT x 4 extremities. DTRs wnl. L5 intact bilaterally. No clonus. SKIN: No rash or jaundice noted. Tyler Cano MD Past Med/Surg History Problem List (Updated 01/13/25 @ 22:19 by Tyler Cano MD) Chronic neck pain (Acute) Hypertension (Acute) Acute neck pain (Acute) Leukocytosis Hypertension NO MEDS; ONLY W/ SEVERE PAIN Acute neck pain Chronic neck pain (Acute) Diastolic hypertension Daytime sleepiness Dry eyes Nausea Hypertension (Acute) Prediabetes Hyperlipemia Obesity (BMI 30-39.9) Tobacco abuse Fatigue Hypogonadism in male Lumbar disc herniation with radiculopathy (Acute) Myofascial pain Lumbosacral spondylosis with radiculopathy Shoulder pain, right (Acute) Dental caries (Acute) Back pain (Acute) History of hand surgery History of fusion of cervical spine Cervical spinal cord compression STATES "SCREW STICKING INTO SPINAL CORD" Bicipital tendonitis of right shoulder (Acute) Medical History Acute neck pain Drug-induced urticaria percocet sep 2024 Other fracture of fourth metacarpal bone, right hand, initialencounter for closed fracture Acromioclavicular separation, type 1 Fall Hx of gastric ulcer Lower back pain Surgical History Status post epidural steroid injection S/P tonsillectomy and adenoidectomy Family History Other No pertinent family history Social History Smoking Status: Former smoker Tobacco Type: Cigarettes Age Started Using Tobacco: 16; packs per day: 1; Cigarettes Per Day: 1 pack; Second Hand Exposure: No; Do You Dip or Chew Tobacco: No; Hx Alcohol Use: No Hx Substance Use: No Preferred Language: Lebanese Communication Ability: Effective Circular [employer] Cooper Required: No Beliefs That Will Affect Care: None marital status details: Current Living Situation: Alone current occupational status: employed Feels Safe at Home: Yes Assistive Devices: None Allergies Allergies Allergy/AdvReac Type Severity Reaction Status Date / Time Corticosteroids Allergy Severe Hives Verified 11/06/24 10:55 (Glucocorticoids) oxycodone Allergy Intermediate hives Verified 11/06/24 10:55 NSAIDS (Non-Steroidal AdvReac Severe PERITONEAL Verified 11/06/24 10:55 Anti-Inflamma PERFORATION ISSUES lisinopril AdvReac Intermediate Cough Verified 11/06/24 10:55 Home Meds Home Medications Medication Instructions Recorded Confirmed fluticasone propionate 50 2 spray intranasal DAILY PRN 05/04/24 01/13/25 mcg/actuation nasal ALLERGIES spray,suspension lidocaine 4 % topical patch 1 patch topical DAILY PRN Pain 09/16/24 01/13/25 Previous Rx's Medication Instructions Recorded rosuvastatin 10 mg tablet 10 mg PO DAILY #90 tabs 06/06/24 hydrocodone 10 mg-acetaminophen 1 tab PO Q8H PRN pain #60 tabs 11/06/24 325 mg tablet ondansetron 4 mg disintegrating 4 mg PO Q8H #90 tabs 11/26/24 tablet Results & Data (ED) Vital Signs Vital Signs - 24 hr 01/13/25 16:24 01/13/25 16:54 01/13/25 16:58 Temperature 36.5 C Temperature Source Temporal Artery Scan Pulse Rate 132 H 116 H 116 H Pulse Rate [Right Finger] Pulse Rate from SpO2 Sensor 117 H Pulse Rhythm [Right Finger] Pulse Strength [Right Finger] Respiratory Rate 18 26 H 18 Respiratory Effort / Characteristics Non-Labored Respiratory Depth Normal Blood Pressure 189/125 H 188/112 H Blood Pressure [Right Arm] Blood Pressure Mean 146 137 Blood Pressure Mean [Right Arm] Blood Pressure Position [Right Arm] Pulse Oximetry 99 97 97 Oxygen Delivery Method Room Air Room Air Sepsis Recent Fever Within 48 Hours No Sepsis New/Unexplained Change in Mental Status No Sepsis Action Taken by Nursing No Action Required 01/13/25 17:07 01/13/25 17:24 01/13/25 17:55 Temperature Temperature Source Pulse Rate 117 H 113 H Pulse Rate [Right Finger] 106 H Pulse Rate from SpO2 Sensor 113 H Pulse Rhythm [Right Finger] Regular Pulse Strength [Right Finger] Normal Respiratory Rate 18 18 Respiratory Effort / Characteristics Non-Labored Spontaneous Respiratory Depth Normal Blood Pressure 187/122 H Blood Pressure [Right Arm] 187/122 H Blood Pressure Mean 143 Blood Pressure Mean [Right Arm] 143 Blood Pressure Position [Right Arm] Sitting Pulse Oximetry 97 97 Oxygen Delivery Method Room Air Sepsis Recent Fever Within 48 Hours Sepsis New/Unexplained Change in Mental Status Sepsis Action Taken by Nursing 01/13/25 17:57 01/13/25 18:04 01/13/25 18:45 Temperature Temperature Source Pulse Rate 102 H 101 H 85 Pulse Rate [Right Finger] Pulse Rate from SpO2 Sensor 102 H 86 Pulse Rhythm [Right Finger] Pulse Strength [Right Finger] Respiratory Rate 14 18 Respiratory Effort / Characteristics Respiratory Depth Blood Pressure 190/117 H 190/117 H 164/123 H Blood Pressure [Right Arm] Blood Pressure Mean 141 136 Blood Pressure Mean [Right Arm] Blood Pressure Position [Right Arm] Pulse Oximetry 97 98 Oxygen Delivery Method Sepsis Recent Fever Within 48 Hours Sepsis New/Unexplained Change in Mental Status Sepsis Action Taken by Nursing 01/13/25 18:54 01/13/25 19:00 01/13/25 19:30 Temperature Temperature Source Pulse Rate 87 98 H 95 H Pulse Rate [Right Finger] Pulse Rate from SpO2 Sensor 97 H 95 H Pulse Rhythm [Right Finger] Pulse Strength [Right Finger] Respiratory Rate 26 H 20 Respiratory Effort / Characteristics Respiratory Depth Blood Pressure 164/123 H 179/129 H 190/139 H Blood Pressure [Right Arm] Blood Pressure Mean 145 159 Blood Pressure Mean [Right Arm] Blood Pressure Position [Right Arm] Pulse Oximetry 98 97 Oxygen Delivery Method Sepsis Recent Fever Within 48 Hours Sepsis New/Unexplained Change in Mental Status Sepsis Action Taken by Nursing 01/13/25 20:45 Temperature Temperature Source Pulse Rate 102 H Pulse Rate [Right Finger] Pulse Rate from SpO2 Sensor Pulse Rhythm [Right Finger] Pulse Strength [Right Finger] Respiratory Rate Respiratory Effort / Characteristics Respiratory Depth Blood Pressure Blood Pressure [Right Arm] Blood Pressure Mean Blood Pressure Mean [Right Arm] Blood Pressure Position [Right Arm] Pulse Oximetry Oxygen Delivery Method Sepsis Recent Fever Within 48 Hours Sepsis New/Unexplained Change in Mental Status Sepsis Action Taken by Nursing Laboratory Data Attestation: I reviewed the patient's lab results. 01/13/25 16:35 01/13/25 16:35 Lab Results 01/13/25 Range/Units 16:35 WBC 15.92 H (4.8-10.8) K/ul RBC 5.45 (4.70-6.10) M/uL Hgb 15.9 (14.0-18.0) g/dl Hct 47.3 (42.0-52.0) % MCV 86.8 (80.0-100.0) fL MCH 29.2 (25.0-34.0) pg MCHC 33.6 (32.0-36.0) g/dL RDW Std Deviation 41.0 (36.4-46.3) fL RDW Coeff of Penny 13.2 (11.5-14.5) % Plt Count 351 (130-400) K/uL MPV 10.2 (9.4-12.4) fL Immature Gran % (Auto) 0.4 % Neut % (Auto) 59.0 % Lymph % (Auto) 33.5 % [place] % (Auto) 4.9 % Eos % (Auto) 1.6 % Baso % (Auto) 0.6 % Neut # (Auto) 9.38 H (1.40-6.50) K/uL Lymph # (Auto) 5.33 H (1.20-3.40) K/uL [place] # (Auto) 0.78 H (0.11-0.59) K/uL Eos # (Auto) 0.26 (0.00-0.50) K/uL Baso # (Auto) 0.10 (0.00-0.20) K/uL Immature Gran # (Auto) 0.07 (0.01-0.20) K/uL Polychromasia 1+ PT 10.5 (9.0-12.0) Seconds INR 1.0 (0.9-1.1) APTT 28 (21-31) Seconds PTT Ratio 1.0 Sodium 139 (136-145) mmol/L Potassium 3.8 (3.5-5.1) mmol/L Chloride 105 (98-107) mmol/L Carbon Dioxide 29 (21-32) mmol/L Anion Gap 5 (3-11) BUN 8 (6-23) mg/dl Creatinine 1.13 (0.6-1.4) mg/dl Est Cr Clr Drug Dosing 115.1 ml/min eGFR 82.71 BUN/Creatinine Ratio 7.1 L (10-20) Glucose 133 H (70-99(Fasting)) mg/dl Calcium 9.6 (8.6-10.3) mg/dl Total Bilirubin 0.6 (0.2-1.0) mg/dl AST 19 (13-39) U/L ALT 23 (7-52) U/L Alkaline Phosphatase 88 (34-104) U/L Troponin I High Sens 3.6 (0-20) pg/ml Total Protein 7.3 (6.0-8.3) gm/dl Albumin 4.8 (3.4-5.0) gm/dl Globulin 2.5 (2.5-4.0) gm/dl Albumin/Globulin Ratio 1.9 (0.9-2) Administered Medications Miscellaneous (Remove Lidoderm Patch) 1 each N/A DAILY@2100 YUE Stop: 02/12/25 20:59 Last Admin: 01/13/25 20:29 Dose: 1 each Documented By: MARY Discontinued Medications Hydrocodone Bitart/Acetaminophen (Hydrocodone/Acetaminophen 7.5/325mg Tab) 2 tab PO NOW STA Stop: 01/13/25 17:53 Last Admin: 01/13/25 18:13 Dose: 2 tab Documented By: RICARDO Dexamethasone Sodium Phosphate (DexamethasonePf 10 Mg/Ml Vial) 10 mg IV NOW ONE Stop: 01/13/25 17:49 Last Admin: 01/13/25 18:08 Dose: 10 mg Documented By: RICARDO Hydromorphone HCl (Hydromorphone Inj 0.5 Mg/0.5 Ml Syr) 0.25 mg IV NOW STA Stop: 01/13/25 20:11 Last Admin: 01/13/25 20:27 Dose: 0.25 mg Documented By: MARY Hydromorphone HCl (Hydromorphone Inj 0.5 Mg/0.5 Ml Syr) 0.25 mg IV NOW Stop: 01/13/25 20:54 Last Admin: 01/13/25 21:04 Dose: 0.25 mg Documented By: MARY Hydromorphone HCl (Hydromorphone Inj 1 Mg/Ml Syringe) 1 mg IV NOW STA Stop: 01/13/25 21:29 Last Admin: 01/13/25 21:46 Dose: 1 mg Documented By: MARY Sodium Chloride (Nss) 1,000 mls @ 999 mls/hr IV .Q1H1M ONE Stop: 01/13/25 18:47 Last Infusion: 01/13/25 18:54 Dose: Infused Documented By: Admin: 01/13/25 18:07 Dose: 999 mls/hr Documented By: RICARDO Labetalol HCl (Labetalol Hcl Iv 5 Mg/Ml 20ml) 10 mg IV NOW STA Stop: 01/13/25 17:48 Last Admin: 01/13/25 18:04 Dose: 10 mg Documented By: RICARDO Lidocaine (Lidocaine 5% 1 Patch) 1 patch TD NOW STA Stop: 01/13/25 17:49 Last Admin: 01/13/25 18:10 Dose: 1 patch Documented [place] [facility] [place]ocarbamol (Methocarbamol 750 Mg Tablet) 1,500 mg PO NOW STA Stop: 01/13/25 17:49 Last Admin: 01/13/25 18:12 Dose: 1,500 mg Documented By: [facility] [place] Data Radiologist's Impression: Chest X-Ray 01/13/25 16:29 EXAM: X-ray chest one-view portable CLINICAL HISTORY: Chest pain PRIORS: 07 September 2024 TECHNIQUE: Frontal view chest upright FINDINGS: The chest is well-expanded. No airspace consolidation, effusion or congestive changes. Heart size is normal. No pneumothorax. Trachea is patent. Osseous structures demonstrate no acute abnormality. No radiopaque foreign body. IMPRESSION: No plain film evidence of an acute cardiopulmonary process. Electronically signed by Beth Kebede 01-13-2025 5:58 PM Discharge Plan Visit Data Chief Complaint: Hypertension Stated Complaint: HTN,HEAD PAIN ED Provider: Tyler Cano Discharge Problem: Acute neck pain, Hypertension, Chronic neck pain Patient Disposition: Admitted As Inpatient Condition: Fair Forms Stand Alone Forms: [facility] Prescriptions Prescriptions: No Action ondansetron 4 mg tablet,disintegrating 4 mg PO Q8H Qty: 90 0RF fluticasone propionate 50 mcg/actuation spray,suspension 2 spray intranasal DAILY PRN (Reason: ALLERGIES) hydrocodone-acetaminophen 10-325 mg tablet 1 tab PO Q8H PRN (Reason: pain) Qty: 60 0RF rosuvastatin 10 mg tablet 10 mg PO DAILY Qty: 90 3RF Rx Instructions: Take one tablet by mouth once a day. lidocaine 4 % Adhesive Patch,Medicated 1 patch TOPICAL DAILY PRN (Reason: Pain) Referrals Referrals: Savana Otto MD [Primary Care Provider] - Discharge Problem: Hypertension Qualifiers: Hypertension type: unspecified Qualified Code(s): I10 - Essential (primary) hypertension
[2025-01-13 17:35] LABS: Partial Thromboplastin Time 28 Seconds (21-31); Prothrombin Time 10.5 Seconds (9.0-12.0)
--- NOTE | 2025-01-13 17:58 | XRay Report ---
EXAM: X-ray chest one-view portable CLINICAL HISTORY: Chest pain PRIORS: 07 September 2024 TECHNIQUE: Frontal view chest upright FINDINGS: The chest is well-expanded. No airspace consolidation, effusion or congestive changes. Heart size is normal. No pneumothorax. Trachea is patent. Osseous structures demonstrate no acute abnormality. No radiopaque foreign body. IMPRESSION: No plain film evidence of an acute cardiopulmonary process. Electronically signed by Beth Kebede 01-13-2025 5:58 PM
[2025-01-13] MEDS: LABETALOL HCL IV 5 MG/ML 20ML IV STA (18:04)
[2025-01-13] MEDS: SODIUM CHLORIDE 0.9% 1,000 ML IV ONE (18:07)
[2025-01-13] MEDS: dexAMETHasone**PF** 10 MG/ML VIAL IV ONE (18:08)
[2025-01-13] MEDS: LIDOCAINE 5% 1 PATCH TD STA (18:10)
[2025-01-13] MEDS: METHOCARBAMOL 750 MG TABLET PO STA (18:12)
[2025-01-13] MEDS: HYDROCODONE/ACETAMINOPHEN 7.5/325MG TAB PO STA (18:13)
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
[2025-01-13] MEDS: HYDROmorphone INJ 0.5 MG/0.5 ML SYR IV STA ×2 (20:27→21:04)
[2025-01-13] MEDS: HYDROmorphone INJ 1 MG/ML SYRINGE IV STA (21:46)
[2025-01-14] MEDS ORDERED: MELATONIN 3 MG TAB PO PRN (00:32)
[2025-01-14] MEDS ORDERED: ONDANSETRON INJ 2 MG/ML 2 ML VIAL IV PRN (00:32)
[2025-01-14] MEDS ORDERED: NALOXONE HCL 0.4 MG/1 ML VIAL/CARP IV PRN (00:32)
[2025-01-14] MEDS ORDERED: DOCUSATE SODIUM 100 MG CAP PO PRN (00:32)
[2025-01-14] MEDS ORDERED: FLUTICASONE PROPIONATE NA SPR 16 GM BTL PRN (00:32)
[2025-01-14] MEDS ORDERED: METHOCARBAMOL 750 MG TABLET PO PRN (00:32)
[2025-01-14] MEDS: HYDROmorphone INJ 0.5 MG/0.5 ML SYR IV PRN (00:54)
[2025-01-14] MEDS: ACETAMINOPHEN 1,000 MG/100 ML VIAL IV SCH (00:54)
[2025-01-14 01:30] VITALS: RESP 18; O2SAT 98
[2025-01-14] MEDS: HYDROmorphone INJ 0.5 MG/0.5 ML SYR IV STA ×2 (02:04→08:47)
[2025-01-14 07:05] LABS: Basophils # (auto) 0.03 K/uL (0.00-0.20); Basophils % (auto) 0.2 %; Hematocrit (blood only) 43.8 % (42.0-52.0); Hemoglobin 15.1 g/dl (14.0-18.0); Immature Granulocytes % (auto) 0.5 %; Lymphocytes # (auto) 2.29 K/uL (1.20-3.40); Lymphocytes % (auto) 11.5 %; Mean Corpuscular Hemoglobin 30.1 pg (25.0-34.0); Mean Corpuscular Hgb Conc 34.5 g/dL (32.0-36.0); Mean Corpuscular Volume 87.4 fL (80.0-100.0); Monocytes # (auto) 0.96 K/uL (0.11-0.59); Monocytes % (auto) 4.8 %; Neutrophils # (auto) 16.59 K/uL (1.40-6.50); Platelet Count 334 K/uL (130-400); RDW Standard Deviation 41.7 fL (36.4-46.3); Red Blood Count 5.01 M/uL (4.70-6.10); White Blood Count 19.97 K/ul (4.8-10.8)
[2025-01-14 07:23] LABS: BUN Creatinine Ratio 14.1 (10-20); Creatinine Clr Calc Pharmacy 166.7 ml/min; Potassium 4.7 mmol/L (3.5-5.1)
[2025-01-14 07:34] VITALS: PULSE 92
[2025-01-14 08:17] VITALS: BP 163/117
[2025-01-14] MEDS: ROSUVASTATIN CALCIUM 10 MG TAB PO SCH (08:49)
--- NOTE | 2025-01-14 08:51 | Electrocardiogram Report ---
Test Reason : Blood Pressure : */* mmHG Vent. Rate : 132 BPM Atrial Rate : 132 BPM P-R Int : 136 ms QRS Dur : 86 ms QT Int : 292 ms P-R-T Axes : 36 56 14 degrees QTcB Int : 432 ms Sinus tachycardia Possible Left atrial enlargement Abnormal ECG When compared with ECG of 16-Sep-2024 20:13, No significant change was found Confirmed by Roxana Quijano (Kristian) on 01/14/2025 8:50:50 AM Referred By: REFERRED SELF Confirmed By: Roxana Quijano
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
== END 2025-01-14 11:54 | disposition home or self-care (01) ==
LOC: ED 16:17 → 3E 16:17 → SUATTDRO 23:16 → 3E 01-14 00:16